=== PATIENT | male | born 1970 | race Caucasian/White ===

== ENCOUNTER 2017-09-06 08:02 | Emergency (ER) | payer MEDICARE, MEDICAID ==
[~2017-09-06] VITALS: Ht 170.2 cm; Wt 110.0 kg
[2017-09-06] MEDS ORDERED: MORPHINE SULFATE 4 MG/ML CPJ (NOT FOR IM USE) IV STA (08:29)
[2017-09-06] MEDS ORDERED: ONDANSETRON HCL 4MG/2ML VIAL IV STA (08:29)
[2017-09-06] MEDS ORDERED: SODIUM CHLORIDE 0.9% 1,000 ML IV ONE (08:29)
[2017-09-06 08:58] LABS: BASOPHILS % 1.4 % (0.0-2.0); EOSINOPHILS % 4.5 % (0.0-5.0); HEMATOCRIT. 42.7 % (42.0-52.0); HEMOGLOBIN. 13.3 g/dL (14.0-18.0); LYMPHOCYTES % 22.8 % (20.0-50.0); MEAN CORPUSCULAR VOLUME 67.4 fL (80.0-94.0); MEAN PLATELET VOLUME 7.8 fl (7.4-10.4); NEUTROPHILS % 65.3 % (40.0-76.0); PLATELET 247 x1000/uL (130-400); RED BLOOD CELL COUNT 6.33 mill/uL (4.7-6.1)
[2017-09-06] MEDS ORDERED: MORPHINE SULFATE 10 MG/ML CPJ IV STA (09:11)
[2017-09-06 09:12] LABS: CARBON DIOXIDE 29 mEq/L (21-32); CHLORIDE 100 mEq/L (98-107)
[2017-09-06 09:26] LABS: INR 1.1; PARTIAL THROMBOPLASTIN TIME 27.5 sec (23.4-31.0); PROTHROMBIN TIME 11.5 sec (9.4-11.6)
[2017-09-06 09:39] LABS: CLARITY URINE CLEAR (CLEAR); COLOR URINE YELLOW (YELLOW); GLUCOSE URINE NEGATIVE (NEGATIVE); KETONES URINE NEGATIVE (NEGATIVE); LEUKOCYTE ESTERASE URINE 1+ (NEGATIVE); NITRITE URINE NEGATIVE (NEGATIVE); OCCULT BLOOD URINE NEGATIVE (NEGATIVE); PROTEIN URINE NEGATIVE (NEGATIVE); SPECIFIC GRAVITY URINE 1.023 (1.005-1.030)
[2017-09-06 09:47] LABS: PLATELET ESTIMATE NORMAL
[2017-09-06 12:00] VITALS: BP 156/88
== END 2017-09-06 13:35 | disposition home or self-care (01) ==
LOC: ER 08:22
DX: K76.9 Liver disease, unspecified (principal); J06.9 Acute upper respiratory infection, unspecified; E66.9 Obesity, unspecified; I10 Essential (primary) hypertension
CPT/HCPCS: 36415; 74022; 74176; 76705; 80053; 81001; 83690; 85025; 85610; 85730; 96361; 96374; 96375; 99285; J2270; J2405; J7030

== ENCOUNTER 2019-11-03 11:34 | Emergency (ER) | payer MEDICARE, MEDICAID ==
[~2019-11-03] VITALS: Ht 167.6 cm; Wt 118.0 kg
[2019-11-03] MEDS ORDERED: KETOROLAC 30MG/ML VIAL IM ONE (13:00)
[2019-11-03] MEDS ORDERED: HYDROCODONE/ACETAMINOPHEN 5/325MG TABLET PO ONE (13:00)
[2019-11-03 13:52] LABS: CLARITY URINE TURBID (CLEAR); COLOR URINE DARK YELLOW (YELLOW); KETONES URINE NEGATIVE (NEGATIVE); LEUKOCYTE ESTERASE URINE 2+ (NEGATIVE); NITRITE URINE NEGATIVE (NEGATIVE); OCCULT BLOOD URINE NEGATIVE (NEGATIVE); PROTEIN URINE 1+ (NEGATIVE); SPECIFIC GRAVITY URINE 1.019 (1.005-1.030); UROBILINOGEN URINE 0.2 E.U./dL (0.2-1.0)
[2019-11-03] MEDS ORDERED: LIDOCAINE HCL 1% 20ML VIAL (Pyxis) INJ INFIL ONE (14:30)
[2019-11-03] MEDS ORDERED: CEFTRIAXONE SODIUM 1 G/VIAL IM ONE (14:30)
[2019-11-03] MEDS ORDERED: AZITHROMYCIN 500 MG TABLET PO ONE (14:45)
[2019-11-03 15:15] VITALS: BP 157/93
== END 2019-11-03 15:21 | disposition home or self-care (01) ==
LOC: ER 11:52
DX: N12 Tubulo-interstitial nephritis, not specified as acute or chronic (principal); N39.0 Urinary tract infection, site not specified
CPT/HCPCS: 81003; 87086; 96372; 99283; J0696; J1885; J3490

== ENCOUNTER 2020-03-09 00:34 | Inpatient (IN) | payer MEDICARE, MEDICAID ==
[~2020-03-09] VITALS: Ht 167.6 cm; Wt 125.2 kg
[2020-03-09] MEDS ORDERED: ONDANSETRON HCL 4MG/2ML INJ IV STA (01:43)
[2020-03-09] MEDS ORDERED: MORPHINE SULFATE 4 MG/ML CPJ (NOT FOR IM USE) IV STA (01:43)
[2020-03-09] MEDS ORDERED: SODIUM CHLORIDE 0.9% 1000ML BAG (SEPSIS BOLUS) IV ONE (01:45)
[2020-03-09] MEDS ORDERED: VANCOMYCIN 1 G PREMIX 200 ML IV SCH (02:00)
[2020-03-09] MEDS ORDERED: CLINDAMYCIN 900 MG in DEXTROSE 5% WATER 50 ML IV ONE (02:00)
[2020-03-09 02:48] LABS: BASOPHILS % 0.7 % (0.0-2.0); EOSINOPHILS % 3.1 % (0.0-5.0); HEMATOCRIT. 36.4 % (42.0-52.0); HEMOGLOBIN. 11.8 g/dL (14.0-18.0); LYMPHOCYTES % 21.4 % (20.0-50.0); MEAN CORPUSCULAR HEMOGLOBIN 21.7 pg (28.0-32.0); MEAN CORPUSCULAR VOLUME 66.6 fL (80.0-94.0); MEAN PLATELET VOLUME 7.6 fl (7.4-10.4); NEUTROPHILS % 68.8 % (40.0-76.0); PLATELET 330 x1000/uL (130-400); RED BLOOD CELL COUNT 5.46 mill/uL (4.7-6.1); RED CELL DISTRIBUTION WIDTH 17.6 % (11.6-14.6)
[2020-03-09 02:56] LABS: CLARITY URINE CLEAR (CLEAR); COLOR URINE YELLOW (YELLOW); KETONES URINE NEGATIVE (NEGATIVE); LEUKOCYTE ESTERASE URINE NEGATIVE (NEGATIVE); NITRITE URINE NEGATIVE (NEGATIVE); OCCULT BLOOD URINE NEGATIVE (NEGATIVE); PH URINE 5.5 (4.5-8.0); PROTEIN URINE NEGATIVE (NEGATIVE); SPECIFIC GRAVITY URINE 1.007 (1.005-1.030); UROBILINOGEN URINE 0.2 E.U./dL (0.2-1.0)
[2020-03-09] MEDS ORDERED: CLINDAMYCIN 900 MG PREMIX 50 ML IV SCH (03:00)
[2020-03-09 03:02] LABS: CHLORIDE 94 mEq/L (98-107)
[2020-03-09 03:06] LABS: METHADONE URINE SCREEN NEGATIVE (NEGATIVE); OPIATES URINE SCREEN NEGATIVE (NEGATIVE); PLATELET ESTIMATE NORMAL
[2020-03-09 03:07] LABS: *AMPHETAMINES SCREEN URINE NEGATIVE (NEGATIVE); *BARBITURATES SCREEN URINE NEGATIVE (NEGATIVE); *BENZODIAZEPINES SCREEN URINE NEGATIVE (NEGATIVE); *COCAINE SCREEN URINE NEGATIVE (NEGATIVE); CANNABINOID URINE SCREEN NEGATIVE (NEGATIVE); ETHANOL BLOOD 222 mg/dL; PHENCYCLIDINE URINE SCREEN NEGATIVE (NEGATIVE)
[2020-03-09 03:09] LABS: BETA HYDROXYBUTYRATE 0.2 mMol/L (0.0-0.3)
[2020-03-09] MEDS: PIPERACILLIN SODIUM/TAZOBACTAM 4.5 G in DEXT 5% WATER 100 ML IV SCH ×2 (03:45→05:00)
[2020-03-09] MEDS ORDERED: IOHEXOL-300 100 ML BOTTLE ONE (03:51)
[2020-03-09] MEDS ORDERED: ONDANSETRON HCL 4MG/2ML INJ IV PRN (10:45)
[2020-03-09] MEDS ORDERED: HYDRALAZINE 20MG/ML VIAL IV PRN (10:45)
[2020-03-09] MEDS ORDERED: CLONIDINE 0.1MG TABLET PO PRN (10:45)
[2020-03-09] MEDS ORDERED: DIPHENHYDRAMINE 50MG/ML VIAL IV PRN (10:45)
[2020-03-09] MEDS ORDERED: ACETAMINOPHEN 325MG TABLET PO PRN (10:45)
[2020-03-09] MEDS ORDERED: ZOLPIDEM TARTRATE 5MG TABLET PO PRN (10:45)
[2020-03-09] MEDS ORDERED: LORAZEPAM 2MG/ML CPJ IV PRN (11:00)
[2020-03-09] MEDS ORDERED: MVI, ADULT NO.1 10 ML, FOLIC ACID 1 MG, THIAMINE HCL 100 MG in SODIUM CHLORIDE 0.9% 1,0... IV NR ×4 (13:00)
[2020-03-09] MEDS: LEVOFLOXACIN 500MG PREMIX 100 ML IV SCH (14:10)
[2020-03-09] MEDS: SODIUM CHLORIDE 0.9% 1,000 ML IV SCH (14:24)
[2020-03-09] MEDS: PIPERACILLIN/TAZOBACTAM 3.375 G in DEXT 5% WATER 100 ML IV SCH (17:40)
[2020-03-09 23:30] VITALS: BP 145/101
[2020-03-10] VITALS: BP 144/92
[2020-03-10] MEDS: PIPERACILLIN/TAZOBACTAM 3.375 G in DEXT 5% WATER 100 ML IV SCH ×4 (00:52→17:49)
[2020-03-10] MEDS ORDERED: PNEUMOCOCCAL 23-VAL P-SAC VAC 0.5 ML IM ONE (02:00)
[2020-03-10 04:00] VITALS: BP 128/79
[2020-03-10] MEDS: SODIUM CHLORIDE 0.9% 1,000 ML IV SCH ×2 (05:54→17:25)
[2020-03-10 06:13] LABS: BASOPHILS % 0.5 % (0.0-2.0); EOSINOPHILS % 1.9 % (0.0-5.0); HEMATOCRIT. 34.4 % (42.0-52.0); HEMOGLOBIN. 11.2 g/dL (14.0-18.0); LYMPHOCYTES % 14.8 % (20.0-50.0); MEAN CORPUSCULAR HEMOGLOBIN 21.8 pg (28.0-32.0); MEAN PLATELET VOLUME 7.5 fl (7.4-10.4); MONOCYTES % 8.3 % (2.0-8.0); NEUTROPHILS % 74.5 % (40.0-76.0); PLATELET 293 x1000/uL (130-400); RED BLOOD CELL COUNT 5.13 mill/uL (4.7-6.1); RED CELL DISTRIBUTION WIDTH 17.8 % (11.6-14.6)
[2020-03-10 06:15] LABS: CHLORIDE 104 mEq/L (98-107)
[2020-03-10 06:33] LABS: PHOSPHORUS 2.5 mg/dL (2.5-4.9)
[2020-03-10 08:00] VITALS: BP 115/75
[2020-03-10] MEDS: ACETAMINOPHEN 325MG TABLET PO PRN (11:48)
[2020-03-10 11:49] VITALS: BP 140/92
[2020-03-10] MEDS: KETOROLAC 30MG/ML VIAL IV PRN (14:30)
[2020-03-10] MEDS: LEVOFLOXACIN 500MG PREMIX 100 ML IV SCH (14:30)
[2020-03-10 16:00] VITALS: BP 134/82
[2020-03-10 20:00] VITALS: BP 144/103
[2020-03-11] VITALS: BP 153/97
[2020-03-11] MEDS: PIPERACILLIN/TAZOBACTAM 3.375 G in DEXT 5% WATER 100 ML IV SCH ×4 (00:16→17:34)
[2020-03-11 04:00] VITALS: BP 153/98
[2020-03-11] MEDS: KETOROLAC 30MG/ML VIAL IV PRN (04:01)
[2020-03-11] MEDS: ACETAMINOPHEN 325MG TABLET PO PRN (04:33)
[2020-03-11 08:00] VITALS: BP 136/82
[2020-03-11 12:00] VITALS: BP 121/62
[2020-03-11 16:00] VITALS: BP 150/91
[2020-03-11 20:00] VITALS: BP 147/87
[2020-03-11] MEDS ORDERED: HYDRALAZINE 10 MG in SODIUM CHLORIDE 0.9% 49.5 ML IV PRN (23:00)
[2020-03-12] VITALS: BP 129/77
[2020-03-12] MEDS: PIPERACILLIN/TAZOBACTAM 3.375 G in DEXT 5% WATER 100 ML IV SCH ×4 (00:47→18:33)
[2020-03-12] MEDS: MULTIVITAMINS,THER W-MINERALS TABLET PO SCH (09:09)
[2020-03-12] MEDS: THIAMINE HCL 100MG TABLET PO SCH (09:09)
[2020-03-12 09:30] VITALS: BP 156/94
[2020-03-12] MEDS: AMLODIPINE 5MG TABLET PO SCH (12:10)
[2020-03-12 13:16] VITALS: BP 99/48
[2020-03-12 16:38] VITALS: BP 120/79
[2020-03-12 20:00] VITALS: BP 149/103
[2020-03-13] VITALS: BP 147/97
[2020-03-13] MEDS: PIPERACILLIN/TAZOBACTAM 3.375 G in DEXT 5% WATER 100 ML IV SCH ×5 (03:09→23:23)
[2020-03-13 04:00] VITALS: BP 135/85
[2020-03-13] MEDS: THIAMINE HCL 100MG TABLET PO SCH (09:59)
[2020-03-13] MEDS: MULTIVITAMINS,THER W-MINERALS TABLET PO SCH (09:59)
[2020-03-13] MEDS: AMLODIPINE 5MG TABLET PO SCH (10:18)
[2020-03-13 20:00] VITALS: BP 139/99
[2020-03-14] VITALS: BP 150/83
[2020-03-14 04:00] VITALS: BP 105/81
[2020-03-14] MEDS: PIPERACILLIN/TAZOBACTAM 3.375 G in DEXT 5% WATER 100 ML IV SCH ×2 (05:12→12:03)
[2020-03-14] MEDS: THIAMINE HCL 100MG TABLET PO SCH (09:21)
[2020-03-14] MEDS: AMLODIPINE 5MG TABLET PO SCH (09:21)
[2020-03-14] MEDS: MULTIVITAMINS,THER W-MINERALS TABLET PO SCH (09:21)
[2020-03-14 10:35] VITALS: BP 142/97
[2020-03-14 12:00] VITALS: BP 144/90
[2020-03-14 15:19] VITALS: BP 144/90
== END 2020-03-14 15:52 | disposition home or self-care (01) | DRG 872 ==
LOC: ER 00:34 → MICUSO 05:53 → 6WST 23:36 → 6EST 03-11 22:57
PROVIDERS: ADMIT Internal Medicine; ATTEND Internal Medicine
DX: A41.9 Sepsis, unspecified organism (principal); E87.1 Hypo-osmolality and hyponatremia; Z68.41 Body mass index [BMI] 40.0-44.9, adult; E11.9 Type 2 diabetes mellitus without complications; E66.9 Obesity, unspecified; F10.10 Alcohol abuse, uncomplicated; N43.3 Hydrocele, unspecified; N45.2 Orchitis; I10 Essential (primary) hypertension; R36.9 Urethral discharge, unspecified; Y90.9 Presence of alcohol in blood, level not specified; K76.0 Fatty (change of) liver, not elsewhere classified; Z87.440 Personal history of urinary (tract) infections; Z83.3 Family history of diabetes mellitus
CPT/HCPCS: 36415; 71045; 74177; 76870; 80048; 80053; 80305; 80320; 81003; 82010; 82962; 83036; 83605; 83735; 84100; 84145; 84484; 85025; 86140; 87077; 87186; 90732; 93005; 93976; 99291; J0360; J1885; J1956; J2270; J2405; J2543; J3370; J3411; J3490; J7030; J7060; Q9967; G0480

== ENCOUNTER 2020-04-17 23:05 | Emergency (ER) | payer MEDICARE, MEDICAID ==
[~2020-04-17] VITALS: Ht 167.6 cm; Wt 113.0 kg
[2020-04-18] MEDS ORDERED: KETOROLAC 60MG/2ML VIAL IM ONE
[2020-04-18 00:18] VITALS: BP 136/78
[2020-04-18 00:25] LABS: CLARITY URINE CLEAR (CLEAR); COLOR URINE YELLOW (YELLOW); KETONES URINE NEGATIVE (NEGATIVE); LEUKOCYTE ESTERASE URINE NEGATIVE (NEGATIVE); NITRITE URINE NEGATIVE (NEGATIVE); OCCULT BLOOD URINE NEGATIVE (NEGATIVE); PROTEIN URINE NEGATIVE (NEGATIVE); SPECIFIC GRAVITY URINE 1.008 (1.005-1.030); UROBILINOGEN URINE 0.2 E.U./dL (0.2-1.0)
== END 2020-04-18 02:09 | disposition home or self-care (01) ==
LOC: ER 23:05
DX: S22.31XA Fracture of one rib, right side, initial encounter for closed fracture (principal); X58.XXXA Exposure to other specified factors, initial encounter; Y93.9 Activity, unspecified; Y92.9 Unspecified place or not applicable; E11.9 Type 2 diabetes mellitus without complications; I10 Essential (primary) hypertension
CPT/HCPCS: 72128; 72131; 74176; 81003; 96372; 99285; J1885

== ENCOUNTER 2021-03-23 15:55 | Emergency (ER) | payer MEDICARE, MEDICAID ==
[~2021-03-23] VITALS: Ht 170.2 cm; Wt 118.0 kg
[2021-03-23 16:53] LABS: BASOPHILS % 0.6 % (0.0-2.0); EOSINOPHILS % 1.8 % (0.0-5.0); HEMATOCRIT. 34.2 % (42.0-52.0); LYMPHOCYTES % 17.1 % (20.0-50.0); MEAN CORPUSCULAR HEMOGLOBIN 20.7 pg (28.0-32.0); MEAN CORPUSCULAR VOLUME 64.5 fL (80.0-94.0); MEAN PLATELET VOLUME 7.8 fl (7.4-10.4); MONOCYTES % 7.4 % (2.0-8.0); NEUTROPHILS % 73.1 % (40.0-76.0); PLATELET 262 x1000/uL (130-400); RED CELL DISTRIBUTION WIDTH 17.1 % (11.6-14.6)
[2021-03-23 16:58] LABS: CHLORIDE 104 mEq/L (98-107)
[2021-03-23 17:19] LABS: PLATELET ESTIMATE NORMAL
[2021-03-23] MEDS ORDERED: IBUPROFEN 600MG TABLET PO ONE (22:15)
[2021-03-23 23:56] VITALS: BP 123/81
== END 2021-03-24 00:22 | disposition home or self-care (01) ==
LOC: ER 15:55
DX: R60.0 Localized edema (principal); I10 Essential (primary) hypertension
CPT/HCPCS: 36415; 71045; 80053; 83880; 85025; 93970; 99285

== ENCOUNTER 2021-09-17 03:29 | Emergency (ER) | payer MEDICARE, MEDICAID ==
[~2021-09-17] VITALS: Ht 167.6 cm; Wt 114.0 kg
[2021-09-17] MEDS ORDERED: ACETAMINOPHEN 325MG TABLET PO ONE (04:15)
[2021-09-17] MEDS ORDERED: TOPUD MT (06:24)
[2021-09-17 06:45] VITALS: BP 143/78
== END 2021-09-17 06:50 | disposition home or self-care (01) ==
LOC: ER 03:29
DX: S09.8XXA Other specified injuries of head, initial encounter (principal); Y08.89XA Assault by other specified means, initial encounter; Y93.89 Activity, other specified; Y92.89 Other specified places as the place of occurrence of the external cause; Y99.8 Other external cause status; E11.9 Type 2 diabetes mellitus without complications; I10 Essential (primary) hypertension
CPT/HCPCS: 72070; 72100; 99284

== ENCOUNTER 2022-01-09 03:34 | Emergency (ER) | payer MEDICARE, MEDICAID ==
[~2022-01-09] VITALS: Ht 167.6 cm; Wt 90.0 kg
[~2022-01-09 03:34] MED LIST: TOPUD MT
[2022-01-09] MEDS ORDERED: KETOROLAC 30MG/ML VIAL IM ONE (04:15)
[2022-01-09] MEDS ORDERED: NAPR-1176 MT (05:14)
[2022-01-09] MEDS ORDERED: AMLODIPINE 5MG TABLET PO ONE (05:45)
[2022-01-09] MEDS ORDERED: T3 PO (05:53)
[2022-01-09 06:04] VITALS: BP 178/111
== END 2022-01-09 06:24 | disposition home or self-care (01) ==
LOC: ER 03:34
DX: S22.42XA Multiple fractures of ribs, left side, initial encounter for closed fracture (principal); I10 Essential (primary) hypertension; E11.9 Type 2 diabetes mellitus without complications; W01.0XXA Fall on same level from slipping, tripping and stumbling without subsequent striking against object, initial encounter; Y93.89 Activity, other specified; Y92.89 Other specified places as the place of occurrence of the external cause; Y99.8 Other external cause status
CPT/HCPCS: 71101; 96372; 99283; J1885

== ENCOUNTER 2022-02-11 04:05 | Emergency (ER) | payer MEDICARE, MEDICAID ==
[~2022-02-11] VITALS: Ht 175.3 cm; Wt 121.0 kg
[~2022-02-11 04:05] MED LIST changes: +NAPR-1176 MT; +T3 PO
[2022-02-11] MEDS ORDERED: HYDR-4001 MT (07:35)
[2022-02-11 08:05] VITALS: BP 154/100
== END 2022-02-11 08:07 | disposition home or self-care (01) ==
LOC: ER 04:05
DX: S22.31XA Fracture of one rib, right side, initial encounter for closed fracture (principal); X58.XXXA Exposure to other specified factors, initial encounter; Y93.89 Activity, other specified; Y92.89 Other specified places as the place of occurrence of the external cause; Y99.8 Other external cause status; E11.9 Type 2 diabetes mellitus without complications; I10 Essential (primary) hypertension; Z79.899 Other long term (current) drug therapy
CPT/HCPCS: 99283

== ENCOUNTER 2023-10-10 23:01 | Emergency (ER) | payer MEDICARE, MEDICAID ==
[~2023-10-10] VITALS: Ht 177.8 cm; Wt 90.0 kg
[~2023-10-10 23:01] MED LIST changes: +HYDR-4001 MT
[2023-10-10 23:07] VITALS: BP 126/93; PULSE 85; RESP 16; TEMP 98.5; O2SAT 98
== END 2023-10-11 00:15 | disposition home or self-care (01) ==
LOC: ER 23:55
DX: F10.129 Alcohol abuse with intoxication, unspecified (principal); E11.9 Type 2 diabetes mellitus without complications; I10 Essential (primary) hypertension; Y90.0 Blood alcohol level of less than 20 mg/100 ml
CPT/HCPCS: 99283

== ENCOUNTER 2023-12-17 13:02 | Emergency (ER) | payer MEDICARE, MEDICAID ==
[~2023-12-17] VITALS: Ht 167.6 cm; Wt 113.0 kg
[2023-12-17 13:04] VITALS: TEMP 98.1; O2SAT 99
[2023-12-17] MEDS: IBUPROFEN 600MG TABLET PO ONE (14:17)
[2023-12-17] MEDS ORDERED: METH-653 MT (14:44)
[2023-12-17] MEDS ORDERED: IBUP-2029 MT (14:44)
[2023-12-17 15:15] VITALS: BP 180/90; PULSE 100; RESP 16
== END 2023-12-17 15:16 | disposition home or self-care (01) ==
LOC: ER 14:22
DX: M25.561 Pain in right knee (principal)
CPT/HCPCS: 73562; 99283

== ENCOUNTER 2024-03-26 13:22 | Emergency (ER) | payer MEDICARE, MEDICAID ==
[~2024-03-26] VITALS: Ht 165.1 cm; Wt 135.0 kg
[~2024-03-26 13:22] MED LIST changes: +AMLO10TA80 PO; +ASPI-1160 PO; +FURO40TA5 PO; -HYDR-4001 MT; +LOSA50TA41 PO; -NAPR-1176 MT; -T3 PO; -TOPUD MT
[2024-03-26 13:26] VITALS: BP 128/83; PULSE 95; RESP 20; TEMP 98.2; O2SAT 96
[2024-03-26] MEDS: OXYCODONE HCL 5MG TABLET PO ONE (15:48)
[2024-03-26] MEDS ORDERED: IBUP-2029 MT (16:05)
[2024-03-26 16:33] LABS: BASOPHILS % 0.8 % (0.0-2.0); EOSINOPHILS % 6.9 % (0.0-5.0); HEMATOCRIT. 33.4 % (42.0-52.0); LYMPHOCYTES % 27.8 % (20.0-50.0); MEAN CORPUSCULAR HEMOGLOBIN 18.5 pg (28.0-32.0); MEAN CORPUSCULAR VOLUME 61.7 fL (80.0-94.0); MEAN PLATELET VOLUME 8.5 fl (7.4-10.4); MONOCYTES % 6.2 % (2.0-8.0); NEUTROPHILS % 58.3 % (40.0-76.0); PLATELET 396 x1000/uL (130-400); RED BLOOD CELL COUNT 5.41 mill/uL (4.7-6.1); RED CELL DISTRIBUTION WIDTH 20.7 % (11.6-14.6); WHITE BLOOD COUNT 7.9 x1000/uL (4.5-11.0)
[2024-03-26 16:39] LABS: ADD RBC MORPHOLOGY YES; CHLORIDE 102 mEq/L (98-107); DIFFERENTIAL COMMENT 1; POTASSIUM 4.2 mEq/L (3.5-5.1); SODIUM 137 mEq/L (136-145)
[2024-03-26 16:40] LABS: CARBON DIOXIDE 27 mEq/L (21-32)
[2024-03-26 16:41] LABS: CALCIUM 9.1 mg/dL (8.7-10.4)
[2024-03-26 16:45] LABS: GLUCOSE 106 mg/dL (70-105); UREA NITROGEN BLOOD 13 mg/dL (9-23)
[2024-03-26 17:30] LABS: HYPOCHROMASIA 1+; PLATELET ESTIMATE NORMAL
== END 2024-03-26 23:00 | disposition home or self-care (01) ==
LOC: ER 13:22
DX: N43.3 Hydrocele, unspecified (principal); I11.0 Hypertensive heart disease with heart failure; I50.9 Heart failure, unspecified; J44.9 Chronic obstructive pulmonary disease, unspecified; E78.00 Pure hypercholesterolemia, unspecified; D64.9 Anemia, unspecified
CPT/HCPCS: 36415; 76870; 80048; 85025; 93976; 99284

== ENCOUNTER 2024-05-27 22:54 | Emergency (ER) | payer MEDICARE, MEDICAID ==
[~2024-05-27] VITALS: Ht 170.2 cm; Wt 120.0 kg
[~2024-05-27 22:54] MED LIST changes: +IBUP-2029 MT
[2024-05-28] MEDS: METHYLPREDNISOLONE SOD SUCC 125MG/2ML (ACT-O-VIAL) IM STA (00:09)
[2024-05-28 00:45] VITALS: TEMP 36.78072
[2024-05-28] MEDS: IPRATROPIUM BROMIDE (0.02%) 0.5MG/2.5ML NEB HHN STA (01:09)
[2024-05-28] MEDS: ALBUTEROL (0.083%) 2.5MG/3ML NEB HHN STA (01:10)
[2024-05-28 01:12] VITALS: PULSE 100; RESP 22; O2SAT 95
[2024-05-28 01:26] LABS: BASOPHILS % 1.5 % (0.0-2.0); HEMATOCRIT. 32.7 % (42.0-52.0); HEMOGLOBIN. 10.1 g/dL (14.0-18.0); LYMPHOCYTES % 24.4 % (20.0-50.0); MEAN CORPUSCULAR HEMOGLOBIN 18.9 pg (28.0-32.0); MEAN CORPUSCULAR HGB CONC 30.9 g/dL (31.0-37.0); MEAN CORPUSCULAR VOLUME 61.3 fL (80.0-94.0); MEAN PLATELET VOLUME 8.3 fl (7.4-10.4); MONOCYTES % 4.7 % (2.0-8.0); NEUTROPHILS % 65.4 % (40.0-76.0); PLATELET 472 x1000/uL (130-400); RED BLOOD CELL COUNT 5.33 mill/uL (4.7-6.1); RED CELL DISTRIBUTION WIDTH 18.7 % (11.6-14.6); WHITE BLOOD COUNT 8.3 x1000/uL (4.5-11.0)
[2024-05-28 01:31] LABS: DIFFERENTIAL COMMENT 1
[2024-05-28 01:34] LABS: CHLORIDE 100 mEq/L (98-107); POTASSIUM 3.6 mEq/L (3.5-5.1); SODIUM 133 mEq/L (136-145)
[2024-05-28 01:35] LABS: CARBON DIOXIDE 27 mEq/L (21-32)
[2024-05-28 01:36] LABS: CALCIUM 8.9 mg/dL (8.7-10.4)
[2024-05-28 01:40] LABS: CREATININE 0.8 mg/dL (0.6-1.3); GLUCOSE 173 mg/dL (70-105)
[2024-05-28 01:41] LABS: ETHANOL BLOOD 152 mg/dL (<10); TROPONIN I HIGH SENSITIVITY 12 ng/L (3.0-53); UREA NITROGEN BLOOD 6 mg/dL (9-23)
[2024-05-28 01:42] LABS: ALANINE AMINOTRANSFERASE 11 IU/L (10-49); ALBUMIN 4.1 g/dL (3.2-4.8); ASPARTATE AMINOTRANSFERASE 19 IU/L (<34)
[2024-05-28 01:43] LABS: BILIRUBIN TOTAL 0.3 mg/dL (0.1-1.0); PROTEIN TOTAL 8.5 g/dL (6.0-8.3)
[2024-05-28 01:44] LABS: BILIRUBIN DIRECT < 0.1 mg/dL (<=3.0)
[2024-05-28 01:53] LABS: PROTHROMBIN TIME 11.6 sec (9.6-11.0)
[2024-05-28] MEDS: KETOROLAC 15MG/ML VIAL IV ONE (04:30)
[2024-05-28] MEDS ORDERED: METH-653 MT (04:46)
[2024-05-28] MEDS: KETOROLAC 30MG/ML VIAL IM ONE (05:00)
[2024-05-28 05:32] VITALS: BP 139/88; PULSE 74; RESP 20; O2SAT 96
== END 2024-05-28 05:38 | disposition home or self-care (01) ==
LOC: ER 22:54
DX: R60.9 Edema, unspecified (principal); F10.129 Alcohol abuse with intoxication, unspecified; I10 Essential (primary) hypertension; Y90.6 Blood alcohol level of 120-199 mg/100 ml
CPT/HCPCS: 36415; 71045; 93970; 99285; 80076; 80048; 80320; 83880; 83690; 85025; 85610; 84484; 96372; J1885; J2919; G0480

== ENCOUNTER 2024-07-17 04:37 | Emergency (ER) | payer MEDICARE, MEDICAID ==
[~2024-07-17] VITALS: Ht 167.6 cm; Wt 118.0 kg
[~2024-07-17 04:37] MED LIST changes: +METH-653 MT
[2024-07-17 04:43] VITALS: O2SAT 99
[2024-07-17] MEDS: OXYCODONE HCL/ACETAMINOPHEN 5/325MG TABLET PO ONE (05:14)
[2024-07-17] MEDS ORDERED: SODIUM CHLORIDE 0.9% 1,000 ML IV ONE (07:00)
[2024-07-17] MEDS: SODIUM CHLORIDE 0.9% 250 ML IV ONE (07:15)
[2024-07-17] MEDS: MORPHINE SULFATE 4 MG/ML INJ (FOR IV/IM USE) IV ONE (10:43)
[2024-07-17] MEDS: LABETALOL 5MG/ML 4ML INJ IV ONE (12:42)
[2024-07-17 14:04] VITALS: BP 168/113; PULSE 82; RESP 18; TEMP 36.94740; O2SAT 99
== END 2024-07-17 14:28 | disposition short-term general hospital (02) ==
LOC: ER 04:37
DX: S02.40CA Maxillary fracture, right side, initial encounter for closed fracture (principal); J44.9 Chronic obstructive pulmonary disease, unspecified; I11.0 Hypertensive heart disease with heart failure; I50.9 Heart failure, unspecified; E78.00 Pure hypercholesterolemia, unspecified; Z79.899 Other long term (current) drug therapy; Z79.82 Long term (current) use of aspirin; Z98.890 Other specified postprocedural states; Y04.0XXA Assault by unarmed brawl or fight, initial encounter; Y93.89 Activity, other specified; Y92.89 Other specified places as the place of occurrence of the external cause; Y99.8 Other external cause status
CPT/HCPCS: 99291; 70450; 96374; 96361; 96375; 70486; 72125; J3490; J2270; J7030

== ENCOUNTER 2024-10-01 16:20 | Inpatient (IN) | payer MEDICARE, MEDICAID ==
[~2024-10-01] VITALS: Ht 170.2 cm; Wt 139.8 kg
[~2024-10-01 16:20] MED LIST changes: +CLIN40CR VG; +KETO15VI22 IV; -METH-653 MT; +SULF1TAB48 MT
[2024-10-01 17:51] LABS: HEMOGLOBIN. 11.4 g/dL (14.0-18.0); MEAN CORPUSCULAR HEMOGLOBIN 17.9 pg (28.0-32.0); MEAN CORPUSCULAR HGB CONC 30.1 g/dL (31.0-37.0); MEAN CORPUSCULAR VOLUME 59.7 fL (80.0-94.0); MEAN PLATELET VOLUME 8.4 fl (7.4-10.4); PLATELET 284 x1000/uL (130-400); RED BLOOD CELL COUNT 6.37 mill/uL (4.7-6.1); RED CELL DISTRIBUTION WIDTH 21.9 % (11.6-14.6); WHITE BLOOD COUNT 9.8 x1000/uL (4.5-11.0)
[2024-10-01 17:57] LABS: CHLORIDE 101 mEq/L (98-107); DIFFERENTIAL COMMENT 1; SODIUM 135 mEq/L (136-145)
[2024-10-01 17:58] LABS: CARBON DIOXIDE 30 mEq/L (21-32)
[2024-10-01 17:59] LABS: CALCIUM 8.1 mg/dL (8.7-10.4)
[2024-10-01 18:03] LABS: GLUCOSE 103 mg/dL (70-105); UREA NITROGEN BLOOD 7 mg/dL (9-23)
[2024-10-01 18:06] LABS: TROPONIN I HIGH SENSITIVITY 17 ng/L (3.0-53)
[2024-10-01 18:22] LABS: POTASSIUM 6.9 mEq/L (3.5-5.1)
[2024-10-01 18:29] LABS: ANISOCYTOSIS 2+; HYPOCHROMASIA 3+; MICROCYTOSIS 3+; PLATELET ESTIMATE NORMAL
[2024-10-01] MEDS: CALCIUM GLUCONATE 1GM PREMIX 50 ML IV NR (18:46)
[2024-10-01] MEDS: FUROSEMIDE 40MG/4ML VIAL IV NR (18:46)
[2024-10-01] MEDS: INSULIN REGULAR (HUMULIN R) 1000UNITS/10ML VIAL IV NR (18:49)
[2024-10-01] MEDS: DEXTROSE 50% WATER 50ML SYRINGE IV NR (18:49)
[2024-10-01] MEDS: SODIUM BICARBONATE 8.4% 50MEQ/50ML SYR IV NR (18:55)
[2024-10-01 20:00] LABS: CHLORIDE 102 mEq/L (98-107); SODIUM 140 mEq/L (136-145)
[2024-10-01 20:01] LABS: CALCIUM 8.4 mg/dL (8.7-10.4); CARBON DIOXIDE 34 mEq/L (21-32)
[2024-10-01 20:06] LABS: GLUCOSE 65 mg/dL (70-105); UREA NITROGEN BLOOD 10 mg/dL (9-23)
[2024-10-01 20:27] VITALS: PULSE 82; RESP 20; O2SAT 94
[2024-10-01] MEDS: ALBUTEROL (0.083%) 2.5MG/3ML NEB HHN SCH (20:27)
[2024-10-01 20:33] LABS: POTASSIUM 3.4 mEq/L (3.5-5.1)
[2024-10-01 20:39] VITALS: PULSE 89; RESP 18; O2SAT 93
[2024-10-01] MEDS ORDERED: DOCUSATE SODIUM 100MG CAPSULE PO PRN (21:00)
[2024-10-01] MEDS ORDERED: ONDANSETRON HCL 4MG/2ML INJ IV PRN (21:00)
[2024-10-01] MEDS ORDERED: MAGNESIUM/ALUMINUM HYDROXIDE/SIMETHICONE 30ML UDC PO PRN (21:00)
[2024-10-01] MEDS ORDERED: IPRATROPIUM/ALBUTEROL 0.5-3(2.5)MG/3ML NEB HHN PRN (21:00)
[2024-10-01] MEDS ORDERED: ACETAMINOPHEN 325MG TABLET PO PRN (21:00)
[2024-10-01] MEDS ORDERED: ALBUTEROL (0.083%) 2.5MG/3ML NEB ONE (21:09)
[2024-10-01 21:10] VITALS: PULSE 90; RESP 20; O2SAT 95
[2024-10-01 21:40] VITALS: BP 155/79; PULSE 89; RESP 15; RESP 22; TEMP 37.00296; TEMP 37.0296; O2SAT 84
[2024-10-01] MEDS: AMLODIPINE 10MG TABLET PO SCH (22:29)
[2024-10-01] MEDS: GUAIFENESIN 200MG/10ML SUGAR FREE UDC PO PRN (22:29)
[2024-10-01 22:31] LABS: IRON 75 ug/dL (65-175)
[2024-10-01 22:34] LABS: TOTAL IRON BINDING CAPACITY 418 ug/dl (250-425)
[2024-10-01 22:39] LABS: VITAMIN B12 SERUM 620 pg/mL (211-911)
[2024-10-01 22:40] LABS: FERRITIN 11 ng/mL (22-322)
[2024-10-02] VITALS (11 sets, daily range): BP systolic 126–187; BP diastolic 88–116; PULSE 65–105; RESP 14–28; TEMP 36.61404–37.28076; O2SAT 93–99
[2024-10-02] MEDS: CLONIDINE 0.1MG TABLET PO PRN (00:49)
[2024-10-02] MEDS: IPRATROPIUM/ALBUTEROL 0.5-3(2.5)MG/3ML NEB HHN SCH (01:39)
[2024-10-02] MEDS ORDERED: DEXTROSE 50% WATER 50ML SYRINGE IV PRN ×2 (05:15→19:45)
[2024-10-02] MEDS: BLOOD SUGAR DIAGNOSTIC STRIP TEST SCH ×2 (06:08→21:00)
[2024-10-02] MEDS: ENOXAPARIN 30MG/0.3ML SYR SUBCUT SCH (08:31)
[2024-10-02] MEDS: PANTOPRAZOLE SODIUM 40 MG/VIAL IV SCH (08:32)
[2024-10-02] MEDS: ASPIRIN 81MG TABLET PO SCH (08:32)
[2024-10-02] MEDS: FUROSEMIDE 40MG/4ML VIAL IV SCH (08:33)
[2024-10-02 08:34] LABS: CHLORIDE 99 mEq/L (98-107); POTASSIUM 3.4 mEq/L (3.5-5.1); SODIUM 139 mEq/L (136-145)
[2024-10-02 08:35] LABS: CARBON DIOXIDE 34 mEq/L (21-32)
[2024-10-02 08:36] LABS: CALCIUM 8.7 mg/dL (8.7-10.4)
[2024-10-02 08:37] LABS: BASOPHILS % 0.5 % (0.0-2.0); EOSINOPHILS % 2.7 % (0.0-5.0); HEMATOCRIT. 34.6 % (42.0-52.0); HEMOGLOBIN. 10.3 g/dL (14.0-18.0); LYMPHOCYTES % 16.9 % (20.0-50.0); MEAN CORPUSCULAR HEMOGLOBIN 17.6 pg (28.0-32.0); MEAN CORPUSCULAR HGB CONC 29.7 g/dL (31.0-37.0); MEAN CORPUSCULAR VOLUME 59.3 fL (80.0-94.0); MEAN PLATELET VOLUME 8.9 fl (7.4-10.4); MONOCYTES % 6.9 % (2.0-8.0); PLATELET 244 x1000/uL (130-400); RED BLOOD CELL COUNT 5.83 mill/uL (4.7-6.1); RED CELL DISTRIBUTION WIDTH 20.1 % (11.6-14.6); WHITE BLOOD COUNT 10.4 x1000/uL (4.5-11.0)
[2024-10-02 08:40] LABS: CREATININE 1.1 mg/dL (0.6-1.3); GLUCOSE 84 mg/dL (70-105); TROPONIN I HIGH SENSITIVITY 15 ng/L (3.0-53)
[2024-10-02 08:41] LABS: LDL CHOLESTEROL 62 mg/dL (5-100); TRIGLYCERIDE 79 mg/dL (0-150); UREA NITROGEN BLOOD 13 mg/dL (9-23)
[2024-10-02 08:42] LABS: ALBUMIN 3.4 g/dL (3.2-4.8); CHOLESTEROL 128 mg/dL (<200); HDL CHOLESTEROL 50 mg/dL (>55)
[2024-10-02 08:43] LABS: T4 FREE 0.96 ng/dL (0.89-1.76)
[2024-10-02 08:44] LABS: DIFFERENTIAL COMMENT 1; THYROID STIMULATING HORMONE 2.67 uIU/mL (0.55-4.78)
[2024-10-02 09:06] LABS: CLARITY URINE CLEAR (CLEAR); COLOR URINE DARK YELLOW (YELLOW); GLUCOSE URINE NEGATIVE (NEGATIVE); KETONES URINE TRACE (NEGATIVE); LEUKOCYTE ESTERASE URINE 1+ (NEGATIVE); NITRITE URINE NEGATIVE (NEGATIVE); OCCULT BLOOD URINE NEGATIVE (NEGATIVE); PH URINE 6.5 (4.5-8.0); PROTEIN URINE 1+ (NEGATIVE)
[2024-10-02] MEDS: FUROSEMIDE 40MG/4ML VIAL IVP SCH (09:15)
[2024-10-02 09:24] LABS: *AMPHETAMINES SCREEN URINE NEGATIVE (NEGATIVE); *BENZODIAZEPINES SCREEN URINE NEGATIVE (NEGATIVE)
[2024-10-02 09:25] LABS: *BARBITURATES SCREEN URINE NEGATIVE (NEGATIVE); *COCAINE SCREEN URINE NEGATIVE (NEGATIVE); CANNABINOID URINE SCREEN NEGATIVE (NEGATIVE); ECSTASY MDMA SCREEN URINE NEGATIVE (NEGATIVE); METHADONE URINE SCREEN NEGATIVE (NEGATIVE); OPIATES URINE SCREEN NEGATIVE (NEGATIVE); PHENCYCLIDINE URINE SCREEN NEGATIVE (NEGATIVE)
[2024-10-02 09:34] LABS: BACTERIA URINE 1+; RBC URINE NONE SEEN /hpf (0-2); SQUAMOUS EPITHELIAL CELL URINE FEW /lpf (RARE/1+); YEAST URINE NONE SEEN
[2024-10-02 09:39] LABS: HEPATITIS B SURFACE ANTIGEN NEGATIVE (Negative)
[2024-10-02 10:00] LABS: HEPATITIS C AB NON REACTIVE (Neg) (Negative)
[2024-10-02] MEDS: FUROSEMIDE 20MG/2ML VIAL IVP NR (11:28)
[2024-10-02] MEDS: POTASSIUM CHLORIDE 20MEQ/PACKET PO NR (11:28)
[2024-10-02] MEDS: METHYLPREDNISOLONE SOD SUCC 40MG/ML (ACT-O-VIAL) IV SCH (12:29)
[2024-10-02] MEDS: ENOXAPARIN 40MG/0.4ML SYR SUBCUT SCH (21:32)
[2024-10-02] MEDS: INSULIN LISPRO 100 UNITS/ML SUBCUT SCH (21:38)
[2024-10-03] VITALS (12 sets, daily range): BP systolic 136–165; BP diastolic 52–105; PULSE 89–112; RESP 20–36; TEMP 36.55848–37.16964; O2SAT 91–96
[2024-10-03] MEDS: THEOPHYLLINE ANHYDROUS 80 MG/15 ML 120ML PO SCH (00:12)
[2024-10-03] MEDS: ACETAMINOPHEN 325MG TABLET PO PRN (08:59)
[2024-10-03] MEDS: LOSARTAN 50 MG TABLET PO SCH (09:05)
[2024-10-03 16:20] LABS: HEMATOCRIT 37.5 % (42.0-52.0); HEMOGLOBIN 10.9 g/dL (14.0-18.0); MEAN CORPUSCULAR HEMOGLOBIN 17.6 pg (28.0-32.0); MEAN CORPUSCULAR HGB CONC 29.2 g/dL (31.0-37.0); MEAN CORPUSCULAR VOLUME 60.2 fL (80.0-94.0); PLATELET 303 x1000/uL (130-400); RED BLOOD CELL COUNT 6.22 mill/uL (4.7-6.1); RED CELL DISTRIBUTION WIDTH 20.4 % (11.6-14.6); WHITE BLOOD COUNT 12.6 x1000/uL (4.5-11.0)
[2024-10-03 16:29] LABS: CHLORIDE 95 mEq/L (98-107)
[2024-10-03 16:30] LABS: CARBON DIOXIDE 32 mEq/L (21-32); SODIUM 134 mEq/L (136-145)
[2024-10-03 16:31] LABS: CALCIUM 9.1 mg/dL (8.7-10.4)
[2024-10-03 16:35] LABS: GLUCOSE 220 mg/dL (70-105)
[2024-10-03 16:36] LABS: UREA NITROGEN BLOOD 25 mg/dL (9-23)
[2024-10-03 16:38] LABS: PHOSPHORUS 2.2 mg/dL (2.5-4.9)
[2024-10-03 16:46] LABS: CREATININE 1.5 mg/dL (0.6-1.3)
[2024-10-03] MEDS: FUROSEMIDE 40MG/4ML VIAL IVP SCH (17:21)
[2024-10-03] MEDS: MAGNESIUM 4 G PREMIX 100 ML IV NR (17:39)
[2024-10-03] MEDS: SODIUM PHOSPHATE 15 MMOL in DEXT 5% WATER 245 ML IV NR (19:10)
[2024-10-03] MEDS: GUAIFENESIN-DM 200MG-20MG/10ML UDC PO PRN (21:13)
[2024-10-03] MEDS: METHYLPREDNISOLONE SOD SUCC 40MG/ML (ACT-O-VIAL) IV SCH (21:14)
[2024-10-04] VITALS (11 sets, daily range): BP systolic 113–147; BP diastolic 69–99; PULSE 86–113; RESP 20–28; TEMP 36.78072–37.11408; O2SAT 92–95
[2024-10-04] MEDS ORDERED: MAGNESIUM 4 G PREMIX 100 ML IV ONE (07:15)
[2024-10-04 09:41] LABS: CARBON DIOXIDE 33 mEq/L (21-32); CHLORIDE 98 mEq/L (98-107); POTASSIUM 4.3 mEq/L (3.5-5.1); SODIUM 138 mEq/L (136-145)
[2024-10-04 09:42] LABS: CALCIUM 8.8 mg/dL (8.7-10.4)
[2024-10-04 09:47] LABS: CREATININE 1.2 mg/dL (0.6-1.3); GLUCOSE 143 mg/dL (70-105); UREA NITROGEN BLOOD 26 mg/dL (9-23)
[2024-10-04 09:49] LABS: PHOSPHORUS 4.2 mg/dL (2.5-4.9)
[2024-10-04 09:59] LABS: HEMATOCRIT 37.9 % (42.0-52.0); HEMOGLOBIN 11.1 g/dL (14.0-18.0); MEAN CORPUSCULAR HEMOGLOBIN 17.8 pg (28.0-32.0); MEAN CORPUSCULAR HGB CONC 29.4 g/dL (31.0-37.0); MEAN CORPUSCULAR VOLUME 60.5 fL (80.0-94.0); PLATELET 307 x1000/uL (130-400); RED BLOOD CELL COUNT 6.26 mill/uL (4.7-6.1); RED CELL DISTRIBUTION WIDTH 20.7 % (11.6-14.6); WHITE BLOOD COUNT 16.1 x1000/uL (4.5-11.0)
[2024-10-04] MEDS ORDERED: MUPIROCIN 2% OINT 22GM TOP SCH (14:00)
[2024-10-04] MEDS ORDERED: CHLORHEXIDINE GLUCONATE 4% EXTERNAL USE TOP SCH (14:00)
[2024-10-04] MEDS: CHLORHEXIDINE GLUCONATE 4% EXTERNAL USE TOP SCH (16:57)
[2024-10-04] MEDS: MUPIROCIN 2% OINT 22GM TOP SCH (16:57)
[2024-10-04] MEDS: AZITHROMYCIN 500MG/250ML 250 ML IV SCH (16:58)
[2024-10-04] MEDS: BUDESONIDE 0.5MG/2ML NEB HHN SCH (19:52)
[2024-10-05] VITALS (9 sets, daily range): BP systolic 127–198; BP diastolic 73–155; PULSE 85–105; RESP 18–26; TEMP 36.55848–36.9474; O2SAT 94–97
[2024-10-05 07:23] LABS: CHLORIDE 96 mEq/L (98-107); POTASSIUM 4.1 mEq/L (3.5-5.1); SODIUM 136 mEq/L (136-145)
[2024-10-05 07:24] LABS: CARBON DIOXIDE 36 mEq/L (21-32)
[2024-10-05 07:25] LABS: CALCIUM 8.9 mg/dL (8.7-10.4)
[2024-10-05 07:29] LABS: CREATININE 1.1 mg/dL (0.6-1.3); GLUCOSE 143 mg/dL (70-105); UREA NITROGEN BLOOD 34 mg/dL (9-23)
[2024-10-05 08:06] LABS: HEMATOCRIT 37.5 % (42.0-52.0); HEMOGLOBIN 11.2 g/dL (14.0-18.0); MEAN CORPUSCULAR HEMOGLOBIN 18.1 pg (28.0-32.0); MEAN CORPUSCULAR HGB CONC 29.9 g/dL (31.0-37.0); MEAN CORPUSCULAR VOLUME 60.4 fL (80.0-94.0); PLATELET 316 x1000/uL (130-400); RED CELL DISTRIBUTION WIDTH 21.1 % (11.6-14.6); WHITE BLOOD COUNT 12.9 x1000/uL (4.5-11.0)
[2024-10-05] MEDS: FAMOTIDINE 20MG/2ML VIAL IV SCH (09:02)
[2024-10-06] VITALS (10 sets, daily range): BP systolic 134–169; BP diastolic 86–112; PULSE 66–112; RESP 15–25; TEMP 36.28068–37.00296; O2SAT 94–99
[2024-10-06 07:12] LABS: CHLORIDE 101 mEq/L (98-107); POTASSIUM 4.3 mEq/L (3.5-5.1); SODIUM 138 mEq/L (136-145)
[2024-10-06 07:13] LABS: CARBON DIOXIDE 35 mEq/L (21-32)
[2024-10-06 07:14] LABS: CALCIUM 8.7 mg/dL (8.7-10.4)
[2024-10-06 07:18] LABS: CREATININE 1.2 mg/dL (0.6-1.3); GLUCOSE 213 mg/dL (70-105)
[2024-10-06 07:19] LABS: UREA NITROGEN BLOOD 40 mg/dL (9-23)
[2024-10-06 07:29] LABS: HEMATOCRIT 38.1 % (42.0-52.0); HEMOGLOBIN 11.3 g/dL (14.0-18.0); MEAN CORPUSCULAR HEMOGLOBIN 18.1 pg (28.0-32.0); MEAN CORPUSCULAR HGB CONC 29.7 g/dL (31.0-37.0); MEAN CORPUSCULAR VOLUME 60.8 fL (80.0-94.0); PLATELET 339 x1000/uL (130-400); RED BLOOD CELL COUNT 6.27 mill/uL (4.7-6.1); WHITE BLOOD COUNT 9.4 x1000/uL (4.5-11.0)
[2024-10-06] MEDS ORDERED: DEXTROSE 50% WATER 50ML SYRINGE IV PRN (12:30)
[2024-10-06] MEDS: INSULIN LISPRO 100 UNITS/ML SUBCUT SCH (13:26)
[2024-10-06] MEDS ORDERED: BLOOD SUGAR DIAGNOSTIC STRIP TEST SCH (16:50)
[2024-10-07] VITALS (8 sets, daily range): BP systolic 126–163; BP diastolic 76–115; PULSE 74–106; RESP 18–28; TEMP 36.33624–37.00296; O2SAT 93–100
[2024-10-07 07:11] LABS: POTASSIUM 3.9 mEq/L (3.5-5.1)
[2024-10-07 07:17] LABS: CREATININE 1.3 mg/dL (0.6-1.3)
[2024-10-07 07:49] LABS: HEMATOCRIT 40.5 % (42.0-52.0); HEMOGLOBIN 11.9 g/dL (14.0-18.0); MEAN CORPUSCULAR HEMOGLOBIN 18.2 pg (28.0-32.0); MEAN CORPUSCULAR HGB CONC 29.4 g/dL (31.0-37.0); PLATELET 367 x1000/uL (130-400); RED BLOOD CELL COUNT 6.54 mill/uL (4.7-6.1); RED CELL DISTRIBUTION WIDTH 21.7 % (11.6-14.6)
[2024-10-07] MEDS: INSULIN LISPRO 100 UNITS/ML SUBCUT SCH (13:11)
[2024-10-07] MEDS ORDERED: IPRATROPIUM/ALBUTEROL 0.5-3(2.5)MG/3ML NEB HHN PRN (14:30)
[2024-10-07] MEDS: INSULIN GLARGINE 100 UNITS/ML SUBCUT SCH (21:18)
[2024-10-08] VITALS (8 sets, daily range): BP systolic 115–154; BP diastolic 78–105; PULSE 79–102; RESP 15–24; TEMP 36.61404–37.11408; O2SAT 92–100
[2024-10-08 07:27] LABS: CHLORIDE 101 mEq/L (98-107); POTASSIUM 4.1 mEq/L (3.5-5.1); SODIUM 144 mEq/L (136-145)
[2024-10-08 07:28] LABS: CALCIUM 8.7 mg/dL (8.7-10.4); CARBON DIOXIDE 39 mEq/L (21-32); HEMATOCRIT 40.9 % (42.0-52.0); HEMOGLOBIN 11.9 g/dL (14.0-18.0); MEAN CORPUSCULAR HEMOGLOBIN 18.1 pg (28.0-32.0); MEAN CORPUSCULAR VOLUME 62.2 fL (80.0-94.0); PLATELET 340 x1000/uL (130-400); RED BLOOD CELL COUNT 6.58 mill/uL (4.7-6.1); RED CELL DISTRIBUTION WIDTH 21.7 % (11.6-14.6)
[2024-10-08 07:33] LABS: CREATININE 1.2 mg/dL (0.6-1.3)
[2024-10-08 07:34] LABS: GLUCOSE 101 mg/dL (70-105); UREA NITROGEN BLOOD 37 mg/dL (9-23)
[2024-10-08] MEDS: PREDNISONE 20MG TABLET PO SCH (08:42)
[2024-10-08] MEDS: INSULIN LISPRO 100 UNITS/ML SUBCUT SCH (12:51)
[2024-10-09] VITALS: BP 128/97; PULSE 89; RESP 22; TEMP 36.55848; O2SAT 93; O2SAT 95
[2024-10-09 00:14] VITALS: RESP 22
[2024-10-09 04:00] VITALS: PULSE 82; RESP 31; O2SAT 98
[2024-10-09 04:18] VITALS: RESP 16
[2024-10-09 08:00] VITALS: BP 143/89; PULSE 84; RESP 23; TEMP 36.33624; O2SAT 95
[2024-10-09] MEDS ORDERED: P20 PO (08:36)
[2024-10-09 09:20] LABS: HEMOGLOBIN 11.2 g/dL (14.0-18.0); MEAN CORPUSCULAR HEMOGLOBIN 18.1 pg (28.0-32.0); MEAN CORPUSCULAR HGB CONC 29.5 g/dL (31.0-37.0); MEAN CORPUSCULAR VOLUME 61.5 fL (80.0-94.0); PLATELET 345 x1000/uL (130-400); RED BLOOD CELL COUNT 6.18 mill/uL (4.7-6.1); RED CELL DISTRIBUTION WIDTH 21.5 % (11.6-14.6); WHITE BLOOD COUNT 10.5 x1000/uL (4.5-11.0)
[2024-10-09] MEDS ORDERED: TUSSL GT (09:22)
[2024-10-09] MEDS ORDERED: ALBU18HF2 IH (09:22)
[2024-10-09 09:35] LABS: CARBON DIOXIDE 36 mEq/L (21-32); CHLORIDE 100 mEq/L (98-107); POTASSIUM 3.7 mEq/L (3.5-5.1); SODIUM 141 mEq/L (136-145)
[2024-10-09 09:36] LABS: CALCIUM 8.7 mg/dL (8.7-10.4)
[2024-10-09 09:41] LABS: CREATININE 1.1 mg/dL (0.6-1.3); GLUCOSE 102 mg/dL (70-105); UREA NITROGEN BLOOD 29 mg/dL (9-23)
[2024-10-09 09:42] VITALS: BP 143/89; PULSE 84; TEMP 97.4; O2SAT 95
== END 2024-10-09 10:41 | disposition home or self-care (01) | DRG 291 ==
LOC: ER 16:20 → 3WST 19:47
PROVIDERS: ADMIT Hospitalist; ATTEND Hospitalist
PROC: 5A09357 Assistance with Respiratory Ventilation, Less than 24 Consecutive Hours, Continuous Positive Airway Pressure (ICD-10-PCS; principal; 2024-10-04)
PROC: 5A09357 Assistance with Respiratory Ventilation, Less than 24 Consecutive Hours, Continuous Positive Airway Pressure (ICD-10-PCS; 2024-10-06)
PROC: 5A09357 Assistance with Respiratory Ventilation, Less than 24 Consecutive Hours, Continuous Positive Airway Pressure (ICD-10-PCS; 2024-10-07)
PROC: 5A09357 Assistance with Respiratory Ventilation, Less than 24 Consecutive Hours, Continuous Positive Airway Pressure (ICD-10-PCS; 2024-10-08)
PROC: 5A09357 Assistance with Respiratory Ventilation, Less than 24 Consecutive Hours, Continuous Positive Airway Pressure (ICD-10-PCS; 2024-10-09)
DX: I11.0 Hypertensive heart disease with heart failure (principal); I50.33 Acute on chronic diastolic (congestive) heart failure; J96.01 Acute respiratory failure with hypoxia; J96.02 Acute respiratory failure with hypercapnia; I16.1 Hypertensive emergency; J44.1 Chronic obstructive pulmonary disease with (acute) exacerbation; Z68.42 Body mass index [BMI] 45.0-49.9, adult; E11.9 Type 2 diabetes mellitus without complications; E87.5 Hyperkalemia; D63.8 Anemia in other chronic diseases classified elsewhere; M54.50 Low back pain, unspecified; G47.33 Obstructive sleep apnea (adult) (pediatric); D50.9 Iron deficiency anemia, unspecified; E66.9 Obesity, unspecified; E78.00 Pure hypercholesterolemia, unspecified; I27.20 Pulmonary hypertension, unspecified; Z79.82 Long term (current) use of aspirin; Z91.148 Patient's other noncompliance with medication regimen for other reason; Z79.899 Other long term (current) drug therapy; Z91.199 Patient's noncompliance with other medical treatment and regimen due to unspecified reason
CPT/HCPCS: 36415; 71045; 80048; 80061; 80305; 81003; 82040; 82607; 82728; 82746; 82962; 83036; 83540; 83550; 83735; 83880; 84100; 84145; 84439; 84443; 84484; 85025; 85027; 86705; 87070; 87340; 87804; 93005; 94070; 94640; 94660; 94664; 98960; 99291; C1893; J0456; J0610; J1650; J1815; J1940; J2470; J2920; J3475; J3490; J7060; J7512; J7626

== ENCOUNTER 2024-12-17 19:37 | Inpatient (IN) | payer MEDICARE, MEDICAID ==
[~2024-12-17] VITALS: Ht 167.6 cm; Wt 145.1 kg
[2024-12-17 19:20] VITALS: BP 130/73; PULSE 95; RESP 18; TEMP 36.8
[~2024-12-17 19:37] MED LIST changes: +ALBU18HF2 IH; -CLIN40CR VG; -IBUP-2029 MT; +IBUP-2030 MT; -KETO15VI22 IV; +LOSA100T33 PO; -LOSA50TA41 PO; +POTA-205 MT; -SULF1TAB48 MT
[2024-12-17 20:00] VITALS: BP 130/73; PULSE 98; RESP 19; TEMP 36.8; O2SAT 95
[2024-12-17] MEDS ORDERED: ONDANSETRON HCL 4MG/2ML INJ IV PRN (20:00)
[2024-12-17] MEDS ORDERED: CLONIDINE 0.1MG TABLET PO PRN (20:00)
[2024-12-17] MEDS ORDERED: NALOXONE HCL 0.4MG/ML 1ML VIAL IV PRN (20:00)
[2024-12-17] MEDS ORDERED: GUAIFENESIN 200MG/10ML SUGAR FREE UDC PO PRN (20:00)
[2024-12-17] MEDS ORDERED: DEXTROSE 50% WATER 50ML SYRINGE IV PRN (20:00)
[2024-12-17] MEDS ORDERED: ACETAMINOPHEN 325MG TABLET PO PRN (20:00)
[2024-12-17] MEDS ORDERED: IPRATROPIUM/ALBUTEROL 0.5-3(2.5)MG/3ML NEB HHN PRN (20:00)
[2024-12-17] MEDS ORDERED: KETOROLAC 15MG/ML VIAL IV PRN (20:00)
[2024-12-17] MEDS: ATORVASTATIN CALCIUM 40MG TABLET PO SCH (21:00)
[2024-12-17] MEDS ORDERED: ENOXAPARIN 30MG/0.3ML SYR SUBCUT SCH (21:00)
[2024-12-17] MEDS ORDERED: CEPHALEXIN 250MG CAPSULE PO SCH (21:00)
[2024-12-17] MEDS: BLOOD SUGAR DIAGNOSTIC STRIP TEST SCH (21:27)
[2024-12-17] MEDS: HYDROCODONE/ACETAMINOPHEN 5/325MG TABLET PO PRN (22:11)
[2024-12-18] MEDS: CEPHALEXIN 250MG CAPSULE PO SCH (00:27)
[2024-12-18] MEDS: ENOXAPARIN 30MG/0.3ML SYR SUBCUT SCH (03:28)
[2024-12-18] MEDS: PANTOPRAZOLE 40MG DR TABLET PO SCH (06:35)
[2024-12-18 08:00] VITALS: BP 144/106; PULSE 75; RESP 18; TEMP 36.1; O2SAT 95
[2024-12-18] MEDS: ASPIRIN 81MG TABLET PO SCH (08:39)
[2024-12-18] MEDS: LOSARTAN 50 MG TABLET PO SCH (08:39)
[2024-12-18] MEDS: AMLODIPINE 10MG TABLET PO SCH (08:40)
[2024-12-18] MEDS: FUROSEMIDE 20MG TABLET PO SCH (08:40)
[2024-12-18] MEDS: HYDROCODONE/ACETAMINOPHEN 5/325MG TABLET PO PRN (11:10)
[2024-12-18] MEDS: FERROUS SULFATE 325MG TABLET PO SCH (15:13)
[2024-12-18 17:44] LABS: BASOPHILS % 0.3 % (0.0-2.0); EOSINOPHILS % 2.1 % (0.0-5.0); HEMATOCRIT. 34.6 % (42.0-52.0); LYMPHOCYTES % 18.6 % (20.0-50.0); MEAN CORPUSCULAR HEMOGLOBIN 18.7 pg (28.0-32.0); MEAN CORPUSCULAR VOLUME 64.4 fL (80.0-94.0); MEAN PLATELET VOLUME 8.5 fl (7.4-10.4); MONOCYTES % 7.5 % (2.0-8.0); NEUTROPHILS % 71.5 % (40.0-76.0); PLATELET 367 x1000/uL (130-400); RED BLOOD CELL COUNT 5.37 mill/uL (4.7-6.1); RED CELL DISTRIBUTION WIDTH 19.6 % (11.6-14.6); WHITE BLOOD COUNT 11.1 x1000/uL (4.5-11.0)
[2024-12-18 17:45] LABS: DIFFERENTIAL COMMENT 1
[2024-12-18 17:47] LABS: ADD RBC MORPHOLOGY YES; CHLORIDE 99 mEq/L (98-107); POTASSIUM 3.8 mEq/L (3.5-5.1); SODIUM 137 mEq/L (136-145)
[2024-12-18 17:48] LABS: CARBON DIOXIDE 31 mEq/L (21-32)
[2024-12-18 17:49] LABS: CALCIUM 8.6 mg/dL (8.7-10.4)
[2024-12-18 17:53] LABS: CREATININE 0.9 mg/dL (0.6-1.3); GLUCOSE 106 mg/dL (70-105)
[2024-12-18 17:54] LABS: UREA NITROGEN BLOOD 17 mg/dL (9-23)
[2024-12-18 17:55] LABS: ALANINE AMINOTRANSFERASE 8 IU/L (10-49); ALBUMIN 3.5 g/dL (3.2-4.8); ASPARTATE AMINOTRANSFERASE 18 IU/L (<34)
[2024-12-18 17:56] LABS: BILIRUBIN TOTAL 0.6 mg/dL (0.1-1.0)
[2024-12-18 20:01] VITALS: BP 149/97; PULSE 100; RESP 17; TEMP 36.9; O2SAT 98
[2024-12-18 23:55] LABS: PLATELET ESTIMATE NORMAL
[2024-12-18 23:56] LABS: ANISOCYTOSIS 1+; HYPOCHROMASIA 3+; MICROCYTOSIS 3+; OVALOCYTES 1+
[2024-12-19 08:00] VITALS: BP 120/45; PULSE 77; RESP 18; TEMP 36.2; O2SAT 94
[2024-12-19 20:48] VITALS: BP 152/98; PULSE 80; RESP 19; TEMP 36.9; O2SAT 96
[2024-12-20 08:00] VITALS: BP 155/102; PULSE 83; RESP 19; TEMP 36.3; O2SAT 97
[2024-12-20 20:00] VITALS: BP 142/98; PULSE 90; RESP 18; TEMP 36.7; O2SAT 96
[2024-12-21 08:00] VITALS: BP 166/87; PULSE 80; RESP 17; TEMP 36.4; O2SAT 95
[2024-12-21 20:00] VITALS: BP 124/91; PULSE 100; RESP 19; TEMP 36.7; O2SAT 96
[2024-12-22 08:00] VITALS: BP 156/96; PULSE 101; RESP 20; TEMP 36.3; O2SAT 97
[2024-12-22 20:00] VITALS: BP 125/57; PULSE 85; RESP 20; TEMP 36.9; O2SAT 96
[2024-12-22] MEDS ORDERED: NALOXONE HCL 0.4MG/ML VIAL IV PRN (22:45)
[2024-12-23 08:00] VITALS: BP 151/63; PULSE 83; RESP 19; TEMP 36.4; O2SAT 95
[2024-12-23] MEDS: HYDROCODONE/ACETAMINOPHEN 5/325MG TABLET PO PRN (09:14)
[2024-12-23 20:00] VITALS: BP 135/72; PULSE 83; RESP 20; TEMP 36.7; O2SAT 96
[2024-12-24 08:00] VITALS: BP 157/73; PULSE 84; RESP 20; TEMP 36.3; O2SAT 97
[2024-12-24 19:49] VITALS: BP 140/96; PULSE 91; RESP 17; TEMP 36.5; O2SAT 96
[2024-12-25 08:00] VITALS: BP 139/79; PULSE 74; RESP 19; TEMP 36.2; O2SAT 95
[2024-12-25 20:24] VITALS: BP 141/97; PULSE 77; RESP 17; TEMP 36.2; O2SAT 97
[2024-12-26 08:00] VITALS: BP 138/92; PULSE 93; RESP 19; TEMP 36.1; O2SAT 96
[2024-12-26 20:00] VITALS: PULSE 75; RESP 18; TEMP 36.8; O2SAT 94
[2024-12-27 08:00] VITALS: BP 122/67; PULSE 74; RESP 18; TEMP 36.1; O2SAT 96
[2024-12-27 20:00] VITALS: BP 134/70; PULSE 78; RESP 20; TEMP 36.2; O2SAT 98
[2024-12-28] MEDS: ACETAMINOPHEN 325MG TABLET PO PRN (07:03)
[2024-12-28 08:00] VITALS: BP 116/80; PULSE 85; RESP 20; TEMP 36.6; O2SAT 95
[2024-12-28 10:38] LABS: BASOPHILS % 0.8 % (0.0-2.0); EOSINOPHILS % 2.8 % (0.0-5.0); HEMATOCRIT. 30.7 % (42.0-52.0); HEMOGLOBIN. 8.9 g/dL (14.0-18.0); LYMPHOCYTES % 16.9 % (20.0-50.0); MEAN CORPUSCULAR HEMOGLOBIN 18.7 pg (28.0-32.0); MEAN CORPUSCULAR HGB CONC 29.1 g/dL (31.0-37.0); MEAN CORPUSCULAR VOLUME 64.4 fL (80.0-94.0); MEAN PLATELET VOLUME 7.9 fl (7.4-10.4); MONOCYTES % 6.2 % (2.0-8.0); NEUTROPHILS % 73.3 % (40.0-76.0); PLATELET 375 x1000/uL (130-400); RED BLOOD CELL COUNT 4.77 mill/uL (4.7-6.1); RED CELL DISTRIBUTION WIDTH 18.4 % (11.6-14.6); WHITE BLOOD COUNT 8.8 x1000/uL (4.5-11.0)
[2024-12-28 10:47] LABS: CHLORIDE 97 mEq/L (98-107); POTASSIUM 3.8 mEq/L (3.5-5.1); SODIUM 135 mEq/L (136-145)
[2024-12-28 10:48] LABS: CALCIUM 9.2 mg/dL (8.7-10.4); CARBON DIOXIDE 27 mEq/L (21-32); DIFFERENTIAL COMMENT 1
[2024-12-28 10:52] LABS: UREA NITROGEN BLOOD 12 mg/dL (9-23)
[2024-12-28 10:53] LABS: CREATININE 0.9 mg/dL (0.6-1.3); GLUCOSE 140 mg/dL (70-105)
[2024-12-28 10:54] LABS: ALANINE AMINOTRANSFERASE 19 IU/L (10-49); ALBUMIN 3.7 g/dL (3.2-4.8); ASPARTATE AMINOTRANSFERASE 21 IU/L (<34)
[2024-12-28 10:55] LABS: BILIRUBIN DIRECT 0.2 mg/dL (<=3.0); BILIRUBIN TOTAL 0.4 mg/dL (0.1-1.0); PHOSPHORUS 4.8 mg/dL (2.5-4.9); PROTEIN TOTAL 8.4 g/dL (6.0-8.3)
[2024-12-28] MEDS ORDERED: MAGNESIUM 1 G PREMIX 100 ML IV NR (13:00)
[2024-12-28 20:00] VITALS: BP 136/86; PULSE 88; RESP 19; TEMP 36.8; O2SAT 96
[2024-12-28] MEDS: MAGNESIUM OXIDE 400MG TABLET PO SCH (22:08)
[2024-12-29 08:00] VITALS: BP 141/98; PULSE 90; RESP 18; TEMP 36.2; O2SAT 95
[2024-12-29] MEDS ORDERED: NALOXONE HCL 0.4MG/ML VIAL IV PRN (09:15)
[2024-12-29] MEDS: HYDROCODONE/ACETAMINOPHEN 5/325MG TABLET PO PRN (09:33)
[2024-12-29 20:00] VITALS: BP 139/87; PULSE 90; RESP 18; TEMP 36.4; O2SAT 96
[2024-12-30 08:00] VITALS: BP 116/67; PULSE 85; RESP 18; TEMP 37.1; O2SAT 98
[2024-12-30] MEDS ORDERED: FERR-63 PO (11:04)
[2024-12-30] MEDS ORDERED: FURO20TA4 PO (11:04)
[2024-12-30] MEDS ORDERED: PANT40TA51 PO (11:04)
[2024-12-30] MEDS ORDERED: LOSA50TA41 PO (11:04)
[2024-12-30] MEDS ORDERED: LIP40 PO (11:04)
[2024-12-30] MEDS ORDERED: TOPUD PO (11:11)
[2024-12-30] MEDS ORDERED: HYDR-4001 PO (11:11)
[2024-12-30] MEDS ORDERED: LOV30 SUBCUT (11:11)
[2024-12-30 11:15] VITALS: BP 116/67; PULSE 85; TEMP 98.8; O2SAT 98
== END 2024-12-30 14:40 | DRG 560 ==
PROVIDERS: ADMIT Psychiatry & Neurology Neurology; ATTEND Internal Medicine
DX: S82.851D Displaced trimalleolar fracture of right lower leg, subsequent encounter for closed fracture with routine healing (principal); I50.32 Chronic diastolic (congestive) heart failure; R65.10 Systemic inflammatory response syndrome (SIRS) of non-infectious origin without acute organ dysfunction; K76.0 Fatty (change of) liver, not elsewhere classified; I11.0 Hypertensive heart disease with heart failure; D75.839 Thrombocytosis, unspecified; D72.829 Elevated white blood cell count, unspecified; D50.9 Iron deficiency anemia, unspecified; E11.9 Type 2 diabetes mellitus without complications; E66.01 Morbid (severe) obesity due to excess calories; E78.5 Hyperlipidemia, unspecified; E83.39 Other disorders of phosphorus metabolism; E83.42 Hypomagnesemia; W01.0XXA Fall on same level from slipping, tripping and stumbling without subsequent striking against object, initial encounter; F10.10 Alcohol abuse, uncomplicated; F17.210 Nicotine dependence, cigarettes, uncomplicated; F39 Unspecified mood [affective] disorder; G47.33 Obstructive sleep apnea (adult) (pediatric); J45.909 Unspecified asthma, uncomplicated; R16.1 Splenomegaly, not elsewhere classified; R14.0 Abdominal distension (gaseous); M79.89 Other specified soft tissue disorders; G47.30 Sleep apnea, unspecified; R07.89 Other chest pain; D64.9 Anemia, unspecified; R26.89 Other abnormalities of gait and mobility; Z60.2 Problems related to living alone; M79.671 Pain in right foot; F79 Unspecified intellectual disabilities; Z68.36 Body mass index [BMI] 36.0-36.9, adult; Z79.899 Other long term (current) drug therapy; Y92.480 Sidewalk as the place of occurrence of the external cause; Y93.89 Activity, other specified; Y99.8 Other external cause status; Z71.6 Tobacco abuse counseling
CPT/HCPCS: 36415; 80048; 80053; 80076; 82962; 83735; 84100; 85025; 97110; 97116; 97150; 97162; 97166; 97530; 97535; 97542; J1650; J3475

== ENCOUNTER 2025-07-24 02:44 | Inpatient (IN) | payer MEDICARE, MEDICAID ==
[~2025-07-24] VITALS: Ht 167.6 cm; Wt 152.9 kg
[~2025-07-24 02:44] MED LIST changes: +AMOX1TAB16 MT; +DOXY100T2 MT; +FERR-63 PO; -FURO40TA5 PO; +FURO80TA87 MT; +HYDR-4001 PO; -IBUP-2030 MT; +LIP40 PO; -LOSA100T33 PO; +LOSA50TA41 PO; +LOV30 SUBCUT; +PANT40TA51 PO; +TOPUD PO
[2025-07-24] MEDS ORDERED: VANCOMYCIN 1G PREMIX 200 ML IV ONE (04:00)
[2025-07-24] MEDS ORDERED: CLINDAMYCIN 300 MG in DEXTROSE 5% WATER 50 ML IV ONE (04:15)
[2025-07-24] MEDS ORDERED: CLINDAMYCIN 600MG PREMIX 50 ML IV NR (04:15)
[2025-07-24 04:16] LABS: CREATININE 1.1 mg/dL (0.6-1.3); UREA NITROGEN BLOOD 6 mg/dL (9-23)
[2025-07-24] MEDS: SODIUM CHLORIDE 0.9% (SEPSIS BOLUS) IV ONE (04:33)
[2025-07-24] MEDS: PIPERACILLIN/TAZO 3.375G/50ML 50 ML IV ONE (04:34)
[2025-07-24 04:37] LABS: BASOPHILS % 0.8 % (0.0-2.0); EOSINOPHILS % 3.1 % (0.0-5.0); HEMATOCRIT. 37.0 % (42.0-52.0); HEMOGLOBIN. 11.2 g/dL (14.0-18.0); LYMPHOCYTES % 17.6 % (20.0-50.0); MEAN PLATELET VOLUME 8.6 fl (7.4-10.4); MONOCYTES % 5.7 % (2.0-8.0); NEUTROPHILS % 72.8 % (40.0-76.0); PLATELET 408 x1000/uL (130-400); RED BLOOD CELL COUNT 6.68 mill/uL (4.7-6.1); RED CELL DISTRIBUTION WIDTH 18.8 % (11.6-14.6)
[2025-07-24 04:53] LABS: ASPARTATE AMINOTRANSFERASE 16 IU/L (<34); BILIRUBIN DIRECT 0.3 mg/dL (<=3.0); BILIRUBIN TOTAL 1.0 mg/dL (0.1-1.0); PROTEIN TOTAL 8.6 g/dL (6.0-8.3)
[2025-07-24 05:27] LABS: INR 1.1
[2025-07-24] MEDS: CLINDAMYCIN 600MG PREMIX 50 ML IV NR (05:27)
[2025-07-24] MEDS ORDERED: GUAIFENESIN 200MG/10ML SUGAR FREE UDC PO PRN (05:30)
[2025-07-24] MEDS ORDERED: ACETAMINOPHEN 325MG TABLET PO PRN (05:30)
[2025-07-24] MEDS ORDERED: DOCUSATE SODIUM 100MG CAPSULE PO PRN (05:30)
[2025-07-24] MEDS ORDERED: CLONIDINE 0.1MG TABLET PO PRN (05:30)
[2025-07-24] MEDS ORDERED: DEXTROSE 50% WATER 50ML SYRINGE IV PRN (06:00)
[2025-07-24] MEDS ORDERED: LORAZEPAM 1MG TABLET PO PRN (06:15)
[2025-07-24 06:43] LABS: FOLIC ACID (FOLATE) SERUM 13.66 ng/mL (>5.38); VITAMIN B12 SERUM 484 pg/mL (211-911)
[2025-07-24 08:00] VITALS: RESP 18
[2025-07-24 09:00] VITALS: BP 136/73; PULSE 94; RESP 17; TEMP 36.6404
[2025-07-24] MEDS ORDERED: ASPIRIN 81MG TABLET PO SCH (09:00)
[2025-07-24] MEDS ORDERED: AMLODIPINE 5MG TABLET PO SCH (09:00)
[2025-07-24] MEDS: VANCOMYCIN 2GM PMX (XELLIA) 400 ML IV NR (09:59)
[2025-07-24] MEDS: IOHEXOL-300 100 ML BOTTLE ONE (10:00)
[2025-07-24] MEDS: FUROSEMIDE 40MG/4ML VIAL IVP SCH (10:05)
[2025-07-24] MEDS: LOSARTAN 50 MG TABLET PO SCH (10:06)
[2025-07-24] MEDS: FERROUS SULFATE 325MG TABLET PO SCH (10:06)
[2025-07-24] MEDS: AMLODIPINE 10MG TABLET PO SCH (10:10)
[2025-07-24] MEDS: INSULIN LISPRO 100 UNITS/ML SUBCUT SCH (10:13)
[2025-07-24] MEDS: BLOOD SUGAR DIAGNOSTIC STRIP TEST SCH (10:13)
[2025-07-24] MEDS: PANTOPRAZOLE 40MG DR TABLET PO SCH (11:01)
[2025-07-24 12:00] VITALS: BP 122/81; PULSE 92; RESP 18; TEMP 36.6; O2SAT 90
[2025-07-24] MEDS ORDERED: CLINDAMYCIN 600MG PREMIX 50 ML IV SCH (14:00)
[2025-07-24] MEDS ORDERED: VANCOMYCIN 1G PREMIX 200 ML IV SCH (15:00)
[2025-07-24] MEDS: CLINDAMYCIN 600MG PREMIX 50 ML IV SCH (15:58)
[2025-07-24 16:00] VITALS: BP 157/75; PULSE 78; RESP 18; TEMP 36.6; O2SAT 99
[2025-07-24] MEDS: PIPERACILLIN/TAZO 3.375G/50ML 50 ML IV SCH (16:00)
[2025-07-24 20:00] VITALS: BP 125/83; PULSE 99; RESP 18; TEMP 36.3; O2SAT 96
[2025-07-24] MEDS: ATORVASTATIN CALCIUM 40MG TABLET PO SCH (21:48)
[2025-07-24] MEDS: VANCOMYCIN 1.25GM/250ML 250 ML IV SCH (21:55)
[2025-07-25] VITALS: BP 129/79; PULSE 86; RESP 17; TEMP 36.3; O2SAT 98
[2025-07-25 04:00] VITALS: BP 122/74; PULSE 93; RESP 18; TEMP 36.7; O2SAT 93
[2025-07-25 08:00] VITALS: BP 114/54; PULSE 95; RESP 16; TEMP 36.5; O2SAT 96
[2025-07-25 08:23] LABS: BASOPHILS % 0.8 % (0.0-2.0); EOSINOPHILS % 5.5 % (0.0-5.0); HEMATOCRIT. 34.6 % (42.0-52.0); HEMOGLOBIN. 10.4 g/dL (14.0-18.0); LYMPHOCYTES % 14.1 % (20.0-50.0); MEAN PLATELET VOLUME 8.8 fl (7.4-10.4); MONOCYTES % 5.9 % (2.0-8.0); NEUTROPHILS % 73.7 % (40.0-76.0); PLATELET 366 x1000/uL (130-400); RED BLOOD CELL COUNT 6.15 mill/uL (4.7-6.1); RED CELL DISTRIBUTION WIDTH 18.7 % (11.6-14.6)
[2025-07-25 08:31] LABS: CREATININE 1.0 mg/dL (0.6-1.3)
[2025-07-25 08:32] LABS: LDL CHOLESTEROL 95 mg/dL (5-100); TRIGLYCERIDE 130 mg/dL (0-150); UREA NITROGEN BLOOD 10 mg/dL (9-23)
[2025-07-25 08:34] LABS: PHOSPHORUS 4.5 mg/dL (2.5-4.9)
[2025-07-25 08:41] LABS: ADD RBC MORPHOLOGY YES
[2025-07-25 12:00] VITALS: BP 136/85; PULSE 91; RESP 16; TEMP 36.6; O2SAT 96
[2025-07-25 16:00] VITALS: BP 155/89; PULSE 98; RESP 16; TEMP 36.7; O2SAT 97
[2025-07-25 17:30] LABS: PLATELET ESTIMATE NORMAL
[2025-07-25 20:00] VITALS: BP_SYST 138; BP_SYST 142; BP_DIAS 68; BP_DIAS 87; PULSE 91; RESP 17; RESP 18; TEMP 36.4; O2SAT 95; O2SAT 98
[2025-07-26] VITALS (7 sets, daily range): BP systolic 118–154; BP diastolic 74–99; PULSE 71–88; RESP 17–23; TEMP 36.2–37.1; O2SAT 90–98
[2025-07-26 07:43] LABS: BASOPHILS % 0.8 % (0.0-2.0); EOSINOPHILS % 5.6 % (0.0-5.0); HEMATOCRIT. 34.4 % (42.0-52.0); HEMOGLOBIN. 10.3 g/dL (14.0-18.0); LYMPHOCYTES % 18.3 % (20.0-50.0); MEAN PLATELET VOLUME 8.7 fl (7.4-10.4); MONOCYTES % 5.5 % (2.0-8.0); NEUTROPHILS % 69.8 % (40.0-76.0); PLATELET 323 x1000/uL (130-400); RED BLOOD CELL COUNT 6.12 mill/uL (4.7-6.1); RED CELL DISTRIBUTION WIDTH 19.0 % (11.6-14.6)
[2025-07-26 08:14] LABS: CREATININE 0.9 mg/dL (0.6-1.3); UREA NITROGEN BLOOD 8 mg/dL (9-23)
[2025-07-26] MEDS: ACETAMINOPHEN 325MG TABLET PO PRN (09:30)
[2025-07-26] MEDS: ONDANSETRON HCL 4MG/2ML INJ IV PRN (09:43)
[2025-07-26] MEDS ORDERED: ONDANSETRON HCL 4MG/2ML INJ ONE (13:16)
[2025-07-26] MEDS ORDERED: FENTANYL CITRATE/PF 50MCG/ML 2ML VIAL ONE (13:16)
[2025-07-26] MEDS ORDERED: PROPOFOL 200MG/20ML VIAL IV ONE ×2 (13:16→13:22)
[2025-07-26] MEDS ORDERED: DEXAMETHASONE 4MG/ML 1ML VIAL ONE (13:16)
[2025-07-26] MEDS ORDERED: LIDOCAINE HCL 1% 10 MG/ML 10ML VIAL ONE (13:21)
[2025-07-26] MEDS ORDERED: FAMOTIDINE 20MG/2ML VIAL IV ONE (13:24)
[2025-07-26] MEDS ORDERED: ACETAMINOPHEN 1000MG/100ML 100 ML IV ONE (13:24)
[2025-07-26] MEDS ORDERED: HYDROCODONE/ACETAMINOPHEN 10/325MG TABLET PO PRN (14:30)
[2025-07-26] MEDS ORDERED: MORPHINE SULFATE 4 MG/ML INJ (FOR IV/IM USE) IV PRN (14:30)
[2025-07-26] MEDS ORDERED: FENTANYL CITRATE/PF 50MCG/ML 2ML VIAL IV PRN (14:30)
[2025-07-26] MEDS ORDERED: HYDROMORPHONE HCL/PF 1MG/ML INJ IV PRN (14:38)
[2025-07-26] MEDS ORDERED: ONDANSETRON HCL 4MG/2ML INJ IV PRN (14:38)
[2025-07-26] MEDS ORDERED: HYDRALAZINE 20MG/ML VIAL IV PRN (14:39)
[2025-07-26] MEDS ORDERED: LABETALOL 5MG/ML 4ML INJ IV PRN (14:42)
[2025-07-26] MEDS: IPRATROPIUM/ALBUTEROL 0.5-3(2.5)MG/3ML NEB HHN PRN (16:25)
[2025-07-27 00:16] VITALS: BP 130/84; PULSE 74; RESP 16; TEMP 36.8; O2SAT 95
[2025-07-27 04:00] VITALS: BP 156/92; PULSE 88; RESP 18; TEMP 36.9; O2SAT 95
[2025-07-27 08:00] VITALS: BP 118/63; PULSE 77; RESP 20; TEMP 36.5; O2SAT 98
[2025-07-27] MEDS: POTASSIUM CHLORIDE 20MEQ TABLET SR PO SCH (11:40)
[2025-07-27] MEDS: METFORMIN HCL 500MG TABLET PO SCH (11:40)
[2025-07-27 12:00] VITALS: BP 127/78; PULSE 87; RESP 19; TEMP 36.6; O2SAT 98
[2025-07-27 16:00] VITALS: BP 125/74; PULSE 85; RESP 19; TEMP 36.6; O2SAT 98
[2025-07-27 20:00] VITALS: BP 131/83; PULSE 50; RESP 18; TEMP 36.6; O2SAT 90
[2025-07-27] MEDS: MAGNESIUM/ALUMINUM HYDROXIDE/SIMETHICONE 30ML UDC PO PRN (23:23)
[2025-07-28] VITALS: BP 138/83; PULSE 81; RESP 19; TEMP 36.5; O2SAT 95
[2025-07-28 04:00] VITALS: BP 148/80; PULSE 88; RESP 18; TEMP 36.4; O2SAT 98
[2025-07-28 06:40] LABS: BASOPHILS % 0.9 % (0.0-2.0); EOSINOPHILS % 6.3 % (0.0-5.0); HEMATOCRIT. 36.1 % (42.0-52.0); HEMOGLOBIN. 10.8 g/dL (14.0-18.0); LYMPHOCYTES % 20.0 % (20.0-50.0); MEAN PLATELET VOLUME 8.8 fl (7.4-10.4); MONOCYTES % 6.3 % (2.0-8.0); NEUTROPHILS % 66.5 % (40.0-76.0); PLATELET 383 x1000/uL (130-400); RED BLOOD CELL COUNT 6.38 mill/uL (4.7-6.1); RED CELL DISTRIBUTION WIDTH 19.1 % (11.6-14.6)
[2025-07-28 06:41] LABS: ADD RBC MORPHOLOGY NO
[2025-07-28 07:20] LABS: CREATININE 1.1 mg/dL (0.6-1.3); UREA NITROGEN BLOOD 9 mg/dL (9-23)
[2025-07-28 07:22] LABS: PHOSPHORUS 2.6 mg/dL (2.5-4.9)
[2025-07-28 08:00] VITALS: BP 111/83; PULSE 96; RESP 18; TEMP 36.4; O2SAT 94
[2025-07-28] MEDS: FAMOTIDINE 20MG TABLET PO SCH (09:08)
[2025-07-28] MEDS: HYDROCODONE/ACETAMINOPHEN 5/325MG TABLET PO PRN (09:09)
[2025-07-28 12:00] VITALS: BP 125/80; PULSE 79; RESP 18; TEMP 36.4; O2SAT 95
[2025-07-28 16:00] VITALS: BP 153/98; PULSE 77; RESP 18; TEMP 36.4; O2SAT 93
[2025-07-28 20:00] VITALS: BP 128/76; PULSE 88; RESP 18; TEMP 36.6; O2SAT 96
[2025-07-29] VITALS: BP 150/92; PULSE 94; RESP 18; TEMP 36.4; O2SAT 90
[2025-07-29 04:00] VITALS: BP 154/94; PULSE 91; RESP 18; TEMP 36.5; O2SAT 90
[2025-07-29 08:00] VITALS: BP 126/82; PULSE 84; RESP 18; TEMP 36.5; O2SAT 95
[2025-07-29 12:00] VITALS: BP 112/64; PULSE 79; RESP 18; TEMP 36.7; O2SAT 90
[2025-07-29 16:00] VITALS: BP 135/90; PULSE 80; RESP 18; TEMP 36.3; O2SAT 97
[2025-07-29] MEDS: GLIPIZIDE 5MG TABLET PO SCH (17:05)
[2025-07-29 20:00] VITALS: BP 147/104; PULSE 97; RESP 16; TEMP 36.1; O2SAT 97
[2025-07-30] VITALS: BP 169/97; PULSE 92; RESP 18; TEMP 36.4; O2SAT 92
[2025-07-30] MEDS ORDERED: PIPERACILLIN/TAZO 3.375G/50ML 50 ML IV ONE (02:52)
[2025-07-30 04:00] VITALS: BP 161/104; PULSE 94; RESP 16; TEMP 36.4; O2SAT 92
[2025-07-30 08:00] VITALS: BP 146/94; PULSE 83; RESP 18; TEMP 36.4; O2SAT 92
[2025-07-30 12:00] VITALS: BP 137/98; PULSE 88; RESP 16; TEMP 36.8; O2SAT 99
[2025-07-30] MEDS: AMPICILLIN SOD/SULBACTAM NA 3 G in SODIUM CHLORIDE 0.9% 100 ML IV SCH (13:00)
[2025-07-30] MEDS ORDERED: AMOX1TAB16 MT (13:29)
[2025-07-30] MEDS ORDERED: METF-414 PO (13:30)
[2025-07-30] MEDS ORDERED: GLIP5TAB22 PO (13:30)
[2025-07-30 16:00] VITALS: BP 146/104; PULSE 72; RESP 18; TEMP 36.6; O2SAT 87
[2025-07-30 20:00] VITALS: BP 136/73; PULSE 88; RESP 17; TEMP 36.6; O2SAT 92
[2025-07-31] VITALS: BP 130/84; PULSE 89; RESP 19; TEMP 36.5; O2SAT 93
[2025-07-31 04:00] VITALS: BP 128/76; PULSE 70; RESP 19; TEMP 36.4; O2SAT 96
[2025-07-31 08:00] VITALS: BP 155/96; PULSE 70; RESP 18; TEMP 36.6; O2SAT 98
[2025-07-31] MEDS: SODIUM HYPOCHLORITE 0.125% 473ML SOLUTION TOP SCH (09:53)
[2025-07-31 12:00] VITALS: BP 123/86; PULSE 82; RESP 20; TEMP 36.6; O2SAT 96
[2025-07-31 16:00] VITALS: BP 133/66; PULSE 84; RESP 20; TEMP 36.6; O2SAT 97
[2025-07-31 20:00] VITALS: BP 124/77; PULSE 89; RESP 17; TEMP 36.5; O2SAT 97
[2025-08-01] VITALS: BP 142/92; PULSE 77; RESP 20; TEMP 36.8; O2SAT 96
[2025-08-01 04:00] VITALS: BP 137/71; PULSE 84; RESP 20; TEMP 36.1; O2SAT 97
[2025-08-01 08:00] VITALS: BP 143/96; PULSE 84; RESP 20; TEMP 36.6; O2SAT 97
[2025-08-01 11:00] VITALS: BP 140/85; PULSE 85; RESP 20; TEMP 98
== END 2025-08-01 11:20 | disposition home health service (06) | DRG 853 ==
LOC: ER 03:02 → 5WST 04:56 → EDBEDREQTM 05:17 → EDBEDREQSVC 05:17 → EDBEDREQ 05:17 → ENRESERV 05:30
PROVIDERS: ADMIT Internal Medicine; ATTEND Internal Medicine
PROC: 0V950ZZ Drainage of Scrotum, Open Approach (ICD-10-PCS; principal; 2025-07-26)
DX: A41.9 Sepsis, unspecified organism (principal); I50.33 Acute on chronic diastolic (congestive) heart failure; Z68.43 Body mass index [BMI] 50.0-59.9, adult; N49.2 Inflammatory disorders of scrotum; I11.0 Hypertensive heart disease with heart failure; K76.0 Fatty (change of) liver, not elsewhere classified; R16.2 Hepatomegaly with splenomegaly, not elsewhere classified; G47.33 Obstructive sleep apnea (adult) (pediatric); E11.8 Type 2 diabetes mellitus with unspecified complications; D75.838 Other thrombocytosis; L73.2 Hidradenitis suppurativa; B96.4 Proteus (mirabilis) (morganii) as the cause of diseases classified elsewhere; Y90.0 Blood alcohol level of less than 20 mg/100 ml; F10.10 Alcohol abuse, uncomplicated; N43.3 Hydrocele, unspecified; E66.01 Morbid (severe) obesity due to excess calories; E78.5 Hyperlipidemia, unspecified; D50.9 Iron deficiency anemia, unspecified; J44.89 Other specified chronic obstructive pulmonary disease; Z79.899 Other long term (current) drug therapy; Z91.199 Patient's noncompliance with other medical treatment and regimen due to unspecified reason
CPT/HCPCS: 36415; 71045; 74177; 76870; 80048; 80061; 80076; 80202; 82607; 82728; 82746; 82962; 83036; 83540; 83550; 83605; 83735; 83880; 84100; 84145; 84443; 85025; 87070; 87075; 87076; 87077; 87186; 93005; 93970; 93976; 94070; 94640; 94664; 96365; 99291; J0295; J1100; J1308; J1815; J1938; J2003; J2405; J2543; J2704; J3010; J3373; J3490; J7030; J7050; J7060; Q9967; J0131

== ENCOUNTER 2025-08-29 12:55 | Inpatient (IN) | payer MEDICARE, MEDICAID ==
[~2025-08-29] VITALS: Ht 167.6 cm; Wt 158.8 kg
[~2025-08-29 12:55] MED LIST changes: +CLON0.1T PO; -DOXY100T2 MT; +GLIP5TAB22 PO; +INSLIS SUBCUT; +LANTUSUD SUBCUT; -LOV30 SUBCUT; +MECL-299 PO; +METF-414 PO; +SODI473S22 TOP
[2025-08-29] MEDS ORDERED: ONDANSETRON HCL 4MG/2ML INJ IV PRN (14:30)
[2025-08-29] MEDS ORDERED: DOCUSATE SODIUM 100MG CAPSULE PO PRN (14:30)
[2025-08-29] MEDS ORDERED: DEXTROSE 50% WATER 50ML SYRINGE IV PRN (14:30)
[2025-08-29] MEDS ORDERED: ACETAMINOPHEN 325MG TABLET PO PRN (14:30)
[2025-08-29] MEDS ORDERED: MECLIZINE 25MG TABLET PO PRN (14:30)
[2025-08-29] MEDS ORDERED: CLONIDINE 0.1MG TABLET PO PRN (14:30)
[2025-08-29] MEDS ORDERED: MAGNESIUM/ALUMINUM HYDROXIDE/SIMETHICONE 30ML UDC PO PRN (14:30)
[2025-08-29] MEDS ORDERED: GUAIFENESIN-DM 200MG-20MG/10ML UDC PO PRN (14:30)
[2025-08-29 15:10] VITALS: BP 136/93; PULSE 85; RESP 19; TEMP 36.7516
[2025-08-29 16:00] VITALS: PULSE 85; RESP 18; TEMP 36.7; O2SAT 95
[2025-08-29] MEDS: INSULIN LISPRO 100 UNITS/ML SUBCUT SCH (17:00)
[2025-08-29] MEDS: BLOOD SUGAR DIAGNOSTIC STRIP TEST SCH (17:53)
[2025-08-29 20:00] VITALS: BP 142/74; PULSE 80; RESP 20; TEMP 36.6; O2SAT 95
[2025-08-29] MEDS: FAMOTIDINE 20MG TABLET PO SCH (22:54)
[2025-08-29] MEDS: ATORVASTATIN CALCIUM 40MG TABLET PO SCH (22:54)
[2025-08-30] MEDS: ACETAMINOPHEN 325MG TABLET PO PRN (06:47)
[2025-08-30 08:00] VITALS: BP 139/68; PULSE 72; RESP 20; TEMP 36.7; O2SAT 94
[2025-08-30] MEDS: LOSARTAN 50 MG TABLET PO SCH (09:56)
[2025-08-30] MEDS: FERROUS SULFATE 325MG TABLET PO SCH (09:57)
[2025-08-30] MEDS: AMLODIPINE 10MG TABLET PO SCH (09:57)
[2025-08-30] MEDS: SODIUM HYPOCHLORITE 0.125% 473ML SOLUTION TOP SCH (09:58)
[2025-08-30 11:17] LABS: BASOPHILS % 0.9 % (0.0-2.0); EOSINOPHILS % 3.2 % (0.0-5.0); HEMATOCRIT. 37.9 % (42.0-52.0); HEMOGLOBIN. 11.1 g/dL (14.0-18.0); LYMPHOCYTES % 19.2 % (20.0-50.0); MEAN PLATELET VOLUME 8.8 fl (7.4-10.4); MONOCYTES % 7.1 % (2.0-8.0); NEUTROPHILS % 69.6 % (40.0-76.0); PLATELET 286 x1000/uL (130-400); RED BLOOD CELL COUNT 6.56 mill/uL (4.7-6.1); RED CELL DISTRIBUTION WIDTH 21.0 % (11.6-14.6)
[2025-08-30 11:24] LABS: ADD RBC MORPHOLOGY YES; CREATININE 0.9 mg/dL (0.6-1.3)
[2025-08-30 11:25] LABS: UREA NITROGEN BLOOD 13 mg/dL (9-23)
[2025-08-30 11:26] LABS: ASPARTATE AMINOTRANSFERASE 14 IU/L (<34)
[2025-08-30 11:27] LABS: BILIRUBIN TOTAL 0.4 mg/dL (0.1-1.0); PROTEIN TOTAL 8.1 g/dL (6.0-8.3)
[2025-08-30] MEDS: INSULIN GLARGINE 100 UNITS/ML SUBCUT SCH (11:27)
[2025-08-30 12:07] LABS: HEPATITIS C AB NON REACTIVE (Neg) (Negative)
[2025-08-30 17:15] LABS: PLATELET ESTIMATE NORMAL
[2025-08-30 20:00] VITALS: BP 133/82; PULSE 82; RESP 20; TEMP 36.1; O2SAT 78
[2025-08-31 08:00] VITALS: BP 146/77; PULSE 83; RESP 18; TEMP 36.3; O2SAT 98
[2025-08-31 08:29] LABS: BASOPHILS % 0.8 % (0.0-2.0); EOSINOPHILS % 3.7 % (0.0-5.0); HEMATOCRIT. 36.3 % (42.0-52.0); HEMOGLOBIN. 10.9 g/dL (14.0-18.0); LYMPHOCYTES % 23.5 % (20.0-50.0); MEAN PLATELET VOLUME 8.8 fl (7.4-10.4); MONOCYTES % 7.1 % (2.0-8.0); NEUTROPHILS % 64.9 % (40.0-76.0); PLATELET 306 x1000/uL (130-400); RED BLOOD CELL COUNT 6.37 mill/uL (4.7-6.1); RED CELL DISTRIBUTION WIDTH 21.0 % (11.6-14.6)
[2025-08-31 08:38] LABS: CREATININE 0.8 mg/dL (0.6-1.3); UREA NITROGEN BLOOD 11 mg/dL (9-23)
[2025-08-31 08:40] LABS: ASPARTATE AMINOTRANSFERASE 12 IU/L (<34); BILIRUBIN TOTAL 0.5 mg/dL (0.1-1.0); PROTEIN TOTAL 8.0 g/dL (6.0-8.3)
[2025-08-31 08:43] LABS: FOLIC ACID (FOLATE) SERUM 10.36 ng/mL (>5.38)
[2025-08-31 08:44] LABS: ADD RBC MORPHOLOGY NO; VITAMIN B12 SERUM 503 pg/mL (211-911)
[2025-08-31] MEDS: SODIUM HYPOCHLORITE 0.125% 473ML SOLUTION TOP SCH (10:10)
[2025-08-31] MEDS: INSULIN LISPRO (LOW DOSE) 100 UNITS/ML SUBCUT SCH (14:16)
[2025-08-31] MEDS: IBUPROFEN 400MG TABLET PO PRN (16:04)
[2025-08-31 20:00] VITALS: BP 139/89; PULSE 85; RESP 18; TEMP 36.3; O2SAT 95
[2025-09-01 08:00] VITALS: BP 123/8; PULSE 76; RESP 18; TEMP 36.1; O2SAT 98
[2025-09-01] MEDS: ASCORBIC ACID 500 MG TABLET PO SCH (08:54)
[2025-09-01] MEDS: FERROUS SULFATE 325MG TABLET PO SCH (08:55)
[2025-09-01] MEDS: ERGOCALCIFEROL 50000UNITS CAPSULE PO SCH (18:31)
[2025-09-01 20:00] VITALS: BP 132/82; PULSE 81; RESP 18; TEMP 36.4; O2SAT 95
[2025-09-02 08:00] VITALS: BP 152/89; PULSE 87; RESP 18; TEMP 36.3; O2SAT 94
[2025-09-02 12:18] VITALS: BP 131/88; PULSE 80; RESP 18; TEMP 36.7; O2SAT 96
[2025-09-02] MEDS: DICLOFENAC SODIUM 1% GEL 50GM TOP SCH (18:21)
[2025-09-02 20:00] VITALS: BP 131/81; PULSE 75; RESP 19; TEMP 37.1; O2SAT 95
[2025-09-03] VITALS: BP 137/80; PULSE 80; RESP 19; TEMP 36.4; O2SAT 96
[2025-09-03 04:00] VITALS: BP 127/81; PULSE 98; RESP 18; TEMP 36.7; O2SAT 98
[2025-09-03] MEDS: LIDOCAINE 5% PATCH TOP SCH (09:00)
[2025-09-03 10:39] VITALS: BP 136/86; RESP 19
[2025-09-03 20:00] VITALS: BP 134/84; PULSE 86; RESP 19; TEMP 36.4; O2SAT 96
[2025-09-04 07:33] LABS: BASOPHILS % 0.8 % (0.0-2.0); EOSINOPHILS % 4.1 % (0.0-5.0); HEMATOCRIT. 33.5 % (42.0-52.0); HEMOGLOBIN. 10.1 g/dL (14.0-18.0); LYMPHOCYTES % 22.7 % (20.0-50.0); MEAN PLATELET VOLUME 8.8 fl (7.4-10.4); MONOCYTES % 7.1 % (2.0-8.0); NEUTROPHILS % 65.3 % (40.0-76.0); PLATELET 289 x1000/uL (130-400); RED BLOOD CELL COUNT 5.92 mill/uL (4.7-6.1); RED CELL DISTRIBUTION WIDTH 20.9 % (11.6-14.6)
[2025-09-04 08:00] VITALS: BP 131/80; PULSE 93; RESP 19; TEMP 37.1; O2SAT 95
[2025-09-04 08:00] LABS: CREATININE 0.8 mg/dL (0.6-1.3)
[2025-09-04 08:01] LABS: UREA NITROGEN BLOOD 14 mg/dL (9-23)
[2025-09-04 08:03] LABS: PHOSPHORUS 4.1 mg/dL (2.5-4.9)
[2025-09-04 20:00] VITALS: BP 123/82; PULSE 86; RESP 19; TEMP 36.4; O2SAT 65
[2025-09-05 00:30] VITALS: RESP 20
[2025-09-05 03:08] VITALS: RESP 22
[2025-09-05 08:00] VITALS: BP 121/87; PULSE 73; RESP 19; TEMP 36.9; O2SAT 96
[2025-09-05 20:00] VITALS: BP 126/89; PULSE 84; RESP 18; TEMP 36.5; O2SAT 99
[2025-09-06 08:00] VITALS: BP 125/91; PULSE 69; RESP 18; TEMP 37.1; O2SAT 95
[2025-09-06 20:00] VITALS: BP 131/75; PULSE 80; RESP 18; TEMP 36.6; O2SAT 94
[2025-09-07 01:10] VITALS: RESP 21
[2025-09-07 04:54] VITALS: RESP 20
[2025-09-07 08:00] VITALS: BP 143/87; PULSE 93; RESP 18; TEMP 36.5; O2SAT 96
[2025-09-07] MEDS: IPRATROPIUM/ALBUTEROL 0.5-3(2.5)MG/3ML NEB HHN SCH (19:40)
[2025-09-07 20:00] VITALS: BP 121/71; PULSE 97; RESP 18; TEMP 36.7; O2SAT 94
[2025-09-08 01:00] VITALS: RESP 20
[2025-09-08 20:00] VITALS: BP 149/92; PULSE 91; RESP 20; TEMP 36.5; O2SAT 92
[2025-09-08 21:15] VITALS: PULSE 91; RESP 20; O2SAT 93
[2025-09-08 23:50] VITALS: RESP 30
[2025-09-09 02:14] VITALS: RESP 28
[2025-09-09 07:37] VITALS: PULSE 91; RESP 24
[2025-09-09 08:00] VITALS: BP 132/81; PULSE 86; RESP 18; TEMP 36.6; O2SAT 95
[2025-09-09] MEDS: DICLOFENAC SODIUM 75MG DR TABLET PO SCH (09:33)
[2025-09-09 13:57] VITALS: PULSE 82; RESP 20
[2025-09-09 20:00] VITALS: BP 139/82; PULSE 69; RESP 18; TEMP 36.6; O2SAT 94
[2025-09-09 22:52] VITALS: PULSE 77; RESP 20; O2SAT 94
[2025-09-10 01:35] VITALS: RESP 26
[2025-09-10 03:24] VITALS: RESP 26
[2025-09-10 08:00] VITALS: BP 132/78; PULSE 68; RESP 18; TEMP 36.6; O2SAT 98
[2025-09-10 15:25] VITALS: PULSE 86; RESP 22; O2SAT 98
[2025-09-10 19:46] VITALS: PULSE 72; RESP 20; O2SAT 98
[2025-09-10 20:00] VITALS: BP 143/86; PULSE 74; RESP 18; TEMP 36.4; O2SAT 95
[2025-09-11 00:16] VITALS: RESP 28
[2025-09-11 08:00] VITALS: BP 135/99; PULSE 101; RESP 19; TEMP 36.7; O2SAT 97
[2025-09-11] MEDS ORDERED: ALBU18HF2 IH (08:58)
[2025-09-11] MEDS ORDERED: FERR-63 PO ×2 (08:58→10:50)
[2025-09-11] MEDS ORDERED: AMLO10TA80 PO ×2 (08:58→10:50)
[2025-09-11] MEDS ORDERED: PANT40TA51 PO (08:58)
[2025-09-11] MEDS ORDERED: ASPI-1160 PO (08:58)
[2025-09-11] MEDS ORDERED: LOSA50TA41 PO (08:58)
[2025-09-11] MEDS ORDERED: LANTUSUD SUBCUT (08:58)
[2025-09-11] MEDS ORDERED: ASCO500T20 PO ×2 (08:58→10:50)
[2025-09-11] MEDS ORDERED: LIP40 PO ×2 (08:58→10:50)
[2025-09-11 09:51] VITALS: PULSE 85; RESP 20; O2SAT 98
[2025-09-11 10:47] VITALS: BP 126/66; PULSE 83; RESP 19; TEMP 98.1
[2025-09-11 10:50] VITALS: BP 126/66; PULSE 83; RESP 19; TEMP 36.9; O2SAT 96
[2025-09-11] MEDS ORDERED: TRAM50TA3 MT (10:53)
[2025-09-12 15:09] LABS: ALDOLASE 4.7 U/L (3.3-10.3)
== END 2025-09-11 13:00 | disposition home or self-care (01) | DRG 73 ==
PROVIDERS: ADMIT Physical Medicine & Rehabilitation Spinal Cord Injury Medicine; ATTEND Student in an Organized Health Care Education/Training Program
PROC: 3E0U33Z Introduction of Anti-inflammatory into Joints, Percutaneous Approach (ICD-10-PCS; principal; 2025-09-08)
PROC: 3E0U33Z Introduction of Anti-inflammatory into Joints, Percutaneous Approach (ICD-10-PCS; 2025-09-08)
PROC: 3E0U3BZ Introduction of Anesthetic Agent into Joints, Percutaneous Approach (ICD-10-PCS; 2025-09-08)
PROC: 3E0U3BZ Introduction of Anesthetic Agent into Joints, Percutaneous Approach (ICD-10-PCS; 2025-09-08)
DX: E11.42 Type 2 diabetes mellitus with diabetic polyneuropathy (principal); A41.9 Sepsis, unspecified organism; R53.2 Functional quadriplegia; I50.32 Chronic diastolic (congestive) heart failure; I11.0 Hypertensive heart disease with heart failure; G62.1 Alcoholic polyneuropathy; D50.9 Iron deficiency anemia, unspecified; F10.10 Alcohol abuse, uncomplicated; N49.2 Inflammatory disorders of scrotum; Z68.43 Body mass index [BMI] 50.0-59.9, adult; F33.1 Major depressive disorder, recurrent, moderate; G47.33 Obstructive sleep apnea (adult) (pediatric); N43.3 Hydrocele, unspecified; L73.2 Hidradenitis suppurativa; E66.01 Morbid (severe) obesity due to excess calories; E55.9 Vitamin D deficiency, unspecified; F17.200 Nicotine dependence, unspecified, uncomplicated; F41.1 Generalized anxiety disorder; N50.89 Other specified disorders of the male genital organs; M19.011 Primary osteoarthritis, right shoulder; M17.11 Unilateral primary osteoarthritis, right knee; R26.9 Unspecified abnormalities of gait and mobility; M79.604 Pain in right leg; M25.511 Pain in right shoulder; R26.2 Difficulty in walking, not elsewhere classified; E87.6 Hypokalemia; Z91.81 History of falling; Z79.899 Other long term (current) drug therapy; Z79.4 Long term (current) use of insulin
CPT/HCPCS: 36415; 73560; 80048; 80053; 82085; 82306; 82550; 82607; 82728; 82746; 82962; 83036; 83540; 83550; 83735; 83880; 84100; 84134; 84550; 85025; 86256; 86431; 86705; 87340; 92523; 94070; 94640; 94660; 94664; 94760; 97110; 97112; 97116; 97150; 97162; 97166; 97530; 97535; 97542; 98960; A4606; J1815

== ENCOUNTER 2025-10-02 20:27 | Inpatient (IN) | payer MEDICARE, MEDICAID ==
[~2025-10-02] VITALS: Ht 167.6 cm; Wt 156.0 kg
[~2025-10-02 20:27] MED LIST changes: -ALBU18HF2 IH; -AMOX1TAB16 MT; +ASCO500T20 PO; -ASPI-1160 PO; -CLON0.1T PO; -FURO80TA87 MT; -GLIP5TAB22 PO; -HYDR-4001 PO; -INSLIS SUBCUT; -MECL-299 PO; -METF-414 PO; -PANT40TA51 PO; -POTA-205 MT; -SODI473S22 TOP; +TRAM50TA3 MT
[2025-10-02 20:32] VITALS: O2SAT 99
[2025-10-02 22:29] LABS: BASOPHILS % 1.2 % (0.0-2.0); EOSINOPHILS % 1.4 % (0.0-5.0); HEMATOCRIT. 35.6 % (42.0-52.0); HEMOGLOBIN. 10.8 g/dL (14.0-18.0); LYMPHOCYTES % 16.5 % (20.0-50.0); MEAN PLATELET VOLUME 8.6 fl (7.4-10.4); MONOCYTES % 5.5 % (2.0-8.0); NEUTROPHILS % 75.4 % (40.0-76.0); PLATELET 288 x1000/uL (130-400); RED BLOOD CELL COUNT 6.12 mill/uL (4.7-6.1); RED CELL DISTRIBUTION WIDTH 20.7 % (11.6-14.6)
[2025-10-02 22:34] LABS: ADD RBC MORPHOLOGY YES
[2025-10-02 22:43] LABS: CREATININE 1.1 mg/dL (0.6-1.3); PROTEIN TOTAL 8.2 g/dL (6.0-8.3); UREA NITROGEN BLOOD 8 mg/dL (9-23)
[2025-10-02 22:44] LABS: ASPARTATE AMINOTRANSFERASE 16 IU/L (<34)
[2025-10-02 22:45] LABS: BILIRUBIN DIRECT 0.2 mg/dL (<=3.0); BILIRUBIN TOTAL 0.7 mg/dL (0.1-1.0)
[2025-10-02 23:04] LABS: CLARITY URINE CLEAR (CLEAR); COLOR URINE YELLOW (YELLOW); GLUCOSE URINE NEGATIVE (NEGATIVE); KETONES URINE NEGATIVE (NEGATIVE); LEUKOCYTE ESTERASE URINE NEGATIVE (NEGATIVE); NITRITE URINE NEGATIVE (NEGATIVE); OCCULT BLOOD URINE NEGATIVE (NEGATIVE); PH URINE 6.5 (4.5-8.0); PROTEIN URINE NEGATIVE (NEGATIVE); SPECIFIC GRAVITY URINE 1.004 (1.005-1.030); UROBILINOGEN URINE 0.2 E.U./dL (0.2-1.0)
[2025-10-02 23:29] LABS: PLATELET ESTIMATE NORMAL
[2025-10-03] VITALS (7 sets, daily range): BP systolic 140–154; BP diastolic 84–98; PULSE 7–106; RESP 17–18; TEMP 36.3–37.2; O2SAT 94–98
[2025-10-03] MEDS ORDERED: VANCOMYCIN 1G PREMIX 200 ML IV ONE (00:45)
[2025-10-03] MEDS: SODIUM CHLORIDE 0.9% 1,000 ML IV ONE (00:53)
[2025-10-03] MEDS: KETOROLAC 15MG/ML VIAL IV ONE (00:53)
[2025-10-03] MEDS: MORPHINE SULFATE 4 MG/ML INJ (FOR IV/IM USE) IV ONE (00:53)
[2025-10-03] MEDS: PIPERACILLIN/TAZO 3.375G/50ML 50 ML IV ONE (01:06)
[2025-10-03 01:56] LABS: INR 1.0
[2025-10-03] MEDS: VANCOMYCIN 2GM PMX (XELLIA) 400 ML IV NR (03:36)
[2025-10-03] MEDS ORDERED: ZOLPIDEM TARTRATE 5MG TABLET PO PRN (04:15)
[2025-10-03] MEDS ORDERED: DEXTROSE 50% WATER 50ML SYRINGE IV PRN (04:15)
[2025-10-03] MEDS ORDERED: VANCOMYCIN 1G PREMIX 200 ML IV SCH (04:15)
[2025-10-03] MEDS ORDERED: MORPHINE SULFATE 4 MG/ML INJ (FOR IV/IM USE) IV PRN (04:15)
[2025-10-03] MEDS ORDERED: MAGNESIUM/ALUMINUM HYDROXIDE/SIMETHICONE 30ML UDC PO PRN (04:15)
[2025-10-03] MEDS ORDERED: HYDROCODONE/ACETAMINOPHEN 10/325MG TABLET PO PRN (04:15)
[2025-10-03] MEDS ORDERED: ACETAMINOPHEN 325MG TABLET PO PRN ×2 (04:15)
[2025-10-03] MEDS ORDERED: CLONIDINE 0.1MG TABLET PO PRN (04:15)
[2025-10-03] MEDS ORDERED: DIPHENHYDRAMINE 50MG/ML VIAL IV PRN (04:15)
[2025-10-03] MEDS: FERROUS SULFATE 325MG TABLET PO SCH (06:45)
[2025-10-03] MEDS: SODIUM CHLORIDE 0.9% 3ML FLUSH IVF SCH (06:45)
[2025-10-03] MEDS: BLOOD SUGAR DIAGNOSTIC STRIP TEST SCH (06:45)
[2025-10-03] MEDS: DICLOFENAC SODIUM 75MG DR TABLET PO SCH (09:00)
[2025-10-03] MEDS: ASCORBIC ACID 500 MG TABLET PO SCH (10:54)
[2025-10-03] MEDS: AMLODIPINE 10MG TABLET PO SCH (10:54)
[2025-10-03] MEDS: ENOXAPARIN 30MG/0.3ML SYR SUBCUT SCH (10:56)
[2025-10-03] MEDS: DICLOFENAC SODIUM 1% GEL 50GM TOP SCH (13:00)
[2025-10-03] MEDS ORDERED: PIPERACILLIN/TAZO 3.375G/50ML 50 ML IV SCH (14:00)
[2025-10-03 14:47] LABS: HEPATITIS C AB NON REACTIVE (Neg) (Negative)
[2025-10-03] MEDS: SODIUM HYPOCHLORITE (0.25%) 480ML SOLUTION (HALF STRENGTH) TOP SCH (15:10)
[2025-10-03] MEDS ORDERED: IOHEXOL-300 100 ML BOTTLE ONE (15:15)
[2025-10-03] MEDS ORDERED: VANCOMYCIN 1.5GM/250ML IV SCH (15:30)
[2025-10-03] MEDS: FAMOTIDINE 20MG TABLET PO SCH (21:14)
[2025-10-03] MEDS: ATORVASTATIN CALCIUM 40MG TABLET PO SCH (21:14)
[2025-10-03] MEDS: CLOTRIMAZOLE 1% CREAM 15GM TOP SCH (21:15)
[2025-10-04] VITALS: BP 143/99; PULSE 82; RESP 17; TEMP 36.7; O2SAT 96
[2025-10-04 04:00] VITALS: BP 143/93; PULSE 84; RESP 17; TEMP 36.9; O2SAT 97
[2025-10-04 08:00] VITALS: BP 154/90; PULSE 89; RESP 18; TEMP 36.4; O2SAT 95
[2025-10-04 12:00] VITALS: BP 139/90; PULSE 81; RESP 16; TEMP 36.6; O2SAT 95
[2025-10-04] MEDS ORDERED: VANCOMYCIN 1000MG/250ML 250 ML IV SCH (15:15)
[2025-10-04 16:00] VITALS: BP 138/76; PULSE 85; RESP 16; TEMP 36.7; O2SAT 94
[2025-10-04] MEDS: VANCOMYCIN 1.75GM PMX (XELLIA) 350 ML IV SCH (16:52)
[2025-10-04 20:00] VITALS: BP 135/90; PULSE 77; RESP 16; TEMP 37; O2SAT 95
[2025-10-05] VITALS (7 sets, daily range): BP systolic 138–153; BP diastolic 87–98; PULSE 69–89; RESP 16–20; TEMP 35.7–36.8; O2SAT 91–96
[2025-10-05 07:43] LABS: CREATININE 0.8 mg/dL (0.6-1.3); UREA NITROGEN BLOOD 13 mg/dL (9-23)
[2025-10-05] MEDS: ONDANSETRON HCL 4MG/2ML INJ IV PRN (09:28)
[2025-10-05 18:01] LABS: BG BASE EXCESS 3.3 mmol/L (-2.0-3.0); BG CARBOXYHEMOGLOBIN 1.6 % (0.5-1.5); BG DEOXYHEMOGLOBIN 13.1 % (0.0-5.0); BG FRACTION INSPIRED OXYGEN 21; BG HCO3 ACT 30.4 mmol/L (21.0-28.0); BG METHEMOGLOBIN 0.0 % (0.5-1.5); BG OXYGEN SATURATION 86.7 % (94.0-98.0); BG OXYHEMOGLOBIN 85.3 % (94.0-98.0); BG PCO2 58.4 mmHg (35.0-48.0); BG PH 7.335 (7.350-7.450); BG PO2 55.4 mmHg (83.0-108.0); BG SAMPLE SITE RIGHT BRACHIAL; BG TOTAL HEMOGLOBIN 12.1 g/dL (13.5-17.5); BG VENT MODE ROOM AIR
[2025-10-06] VITALS: BP 135/83; PULSE 83; RESP 18; TEMP 36.3; O2SAT 94
[2025-10-06 04:00] VITALS: BP 140/80; PULSE 74; RESP 18; TEMP 36.6; O2SAT 95
[2025-10-06 08:00] VITALS: BP 141/90; PULSE 88; RESP 15; TEMP 36.2; O2SAT 96
[2025-10-06 12:00] VITALS: BP 133/86; PULSE 77; RESP 15; TEMP 36.1; O2SAT 100
[2025-10-06 12:57] VITALS: BP 133/86; PULSE 77; RESP 15; TEMP 97
== END 2025-10-06 14:02 | disposition home health service (06) | DRG 607 ==
LOC: ER 20:27 → 5WST 10-03 00:46 → EDBEDREQ 10-03 00:48 → EDBEDREQSVC 10-03 00:48 → EDBEDREQTM 10-03 00:48 → ENRESERV 10-03 00:54
PROVIDERS: ADMIT Internal Medicine; ATTEND Internal Medicine
DX: L73.2 Hidradenitis suppurativa (principal); Z68.43 Body mass index [BMI] 50.0-59.9, adult; B35.6 Tinea cruris; D64.9 Anemia, unspecified; E66.01 Morbid (severe) obesity due to excess calories; E11.9 Type 2 diabetes mellitus without complications; N49.2 Inflammatory disorders of scrotum; I10 Essential (primary) hypertension; J44.89 Other specified chronic obstructive pulmonary disease; Z87.891 Personal history of nicotine dependence
CPT/HCPCS: 36415; 36600; 71045; 73560; 74177; 76870; 80048; 80076; 81003; 82375; 82805; 82962; 83036; 83605; 84145; 85025; 86705; 87340; 93976; 99291; A4606; J1650; J1885; J2270; J2405; J2543; J3373; J7030; Q9967